=== PATIENT | female | born 1960 | race Caucasian/White ===

== ENCOUNTER → 2018-01-10 10:12 | Outpatient (CLI) | payer BC, SELFPAY ==
[2018-01-10 12:51] LABS: T4 Total, Thyroxin 7.6 ug/dL (4.8-13.9); Thyroid Stim Hormone (TSH) 0.48 uIU/mL (0.358-3.74)
== END ==
PROVIDERS: Family Provider Family Medicine; PCP Family Medicine; Visit Provider Family Medicine
DX: E07.9 Disorder of thyroid, unspecified (principal)
CPT/HCPCS: 36415; 84436; 84443

== ENCOUNTER → 2018-01-10 14:34 | Outpatient (CLI) | payer BC, SELFPAY ==
[2018-01-17 15:10] LABS: HPV Reflexed? NOT INDICATED
== END ==
PROVIDERS: Family Provider Family Medicine; PCP Family Medicine; Visit Provider Family Medicine
DX: Z12.4 Encounter for screening for malignant neoplasm of cervix (principal)
CPT/HCPCS: 88175; G0145

== ENCOUNTER → 2018-01-16 10:18 | Outpatient (CLI) | payer SELFPAY ==
--- NOTE | 2018-01-16 10:19 | US_ITS ---
STUDY: THYROID ULTRASOUND REASON FOR EXAM: Female, 57 years old. Thyroid disorder. TECHNIQUE: Ultrasound evaluation of the thyroid was performed with real-time and static caraballo-scale imaging. COMPARISON: None. FINDINGS: RIGHT LOBE: The right lobe of the thyroid gland measures greatest dimension 6.5 cm. The thyroid gland is enlarged, diffusely multinodular and heterogeneous, the largest nodular region measuring approximately 3.0 x 2.0 x 1.9 cm, ill-defined borders throughout. LEFT LOBE: The left lobe of the thyroid gland measures 8.2 x 3.8 x 3.5 cm cm. The thyroid gland is enlarged, diffusely multinodular without well-defined nodular borders similar to that seen on the right. Background vascularity of the right and left gland normal. No hyperemia. ISTHMUS: The isthmus measures up to 2 cm in thickness, nodular and heterogeneous. US/Thyroid IMPRESSION: Diffuse bilateral nodular enlargement of the thyroid gland most consistent with multinodular goiter. Electronically Signed: Kishore Wilson, at 14:28 EDT Tel , Service support ,
== END ==
PROVIDERS: Family Provider Family Medicine; PCP Family Medicine; Visit Provider Family Medicine
DX: E07.9 Disorder of thyroid, unspecified (principal)
CPT/HCPCS: 76536

== ENCOUNTER → 2018-02-03 07:00 | Outpatient (CLI) | payer BC, SELFPAY ==
--- NOTE | 2018-02-03 06:57 | BI_ITS ---
MAMMOGRAPHY - BILATERAL SCREENING REASON FOR EXAM: Female, 57 years old. Routine annual screening examination. PERTINENT HISTORY: Non-contributory. Remote left stereotactic breast biopsy. TECHNIQUE: Digital bilateral breast darrell (3D mammographic acquisition) in the CC and MLO projections. 2-D mediolateral oblique (MLO) and craniocaudad (CC) views of both breasts were obtained. CAD: Full Field Digital Mammography with Computer Added Detection was performed. COMPARISON: Comparison is made with prior study dated April 30, 2016 and April 29, 2015. FINDINGS: Breast Composition: The breasts are heterogeneously dense, which may obscure small masses. There are no dominant masses or suspicious calcifications. Once again, a tissue clip marker is seen in the upper deep lateral aspect of the left breast. No other significant abnormalities are identified. There has been no significant change since the prior study. BI/SCREENING MAMM (CAD), BILAT IMPRESSION: Stable bilateral screening mammogram. Yearly follow-up mammogram recommended. (A) ASSESSMENT CATEGORY: BIRADS Category 2: Benign. A letter regarding these results will be sent to the patient by the facility within 30 days. Approximately 10% of breast cancers are not detected by mammography. A normal mammogram should not delay biopsy of a clinically suspicious abnormality. [id number] Electronically Signed: London Husain MD at 8:36 EDT Tel [phone], Service support ,
== END ==
PROVIDERS: Family Provider Family Medicine; PCP Family Medicine; Visit Provider Family Medicine
DX: Z12.31 Encounter for screening mammogram for malignant neoplasm of breast (principal)
CPT/HCPCS: 77063; 77067

== ENCOUNTER 2020-10-10 08:16 | Outpatient (RCR) | payer BC, SELFPAY ==
[2020-10-10] MEDS: COVID-19 VACC, MRNA(PFIZER)/PF 30 MCG/0.3 ML SYRINGE IM (16:12)
[2020-10-31] MEDS: COVID-19 VACC, MRNA(PFIZER)/PF 30 MCG/0.3 ML SYRINGE IM (15:49)
== END 2020-10-10 23:59 ==
LOC: IMMUN 08:16
PROVIDERS: PCP Family Medicine; Visit Provider Family Medicine
DX: Z23 Encounter for immunization (principal)
CPT/HCPCS: 0001A; 0002A; 91300

== ENCOUNTER 2022-03-30 14:47 | Outpatient (CLI) | payer BC, SELFPAY ==
[2022-04-07 16:36] LABS: HPV APTIMA, High Risk Negative (Negative); HPV Reflexed? YES, CHARGE PATIENT
== END 2022-03-30 23:59 | disposition home or self-care (01) ==
PROVIDERS: PCP Family Medicine; Visit Provider Family Medicine
DX: Z12.4 Encounter for screening for malignant neoplasm of cervix (principal)
CPT/HCPCS: 87624; 88175; G0145

== ENCOUNTER → 2022-04-20 | Outpatient (CLI) | payer BC, SELFPAY ==
--- NOTE | 2022-04-20 16:01 | BI_ITS ---
MAMMOGRAPHY - BILATERAL SCREENING 3-D TOMOSYNTHESIS REASON FOR EXAM: Female, 62 years old. SCREENING PERTINENT HISTORY: No significant family history. TECHNIQUE: 2-D mammograms and 3-D Tomosynthesis of the breast (s) were performed. CAD was performed. COMPARISON: 02/03/2018 FINDINGS: The breast composition is Extermely dense tissue. Scattered benign calcifications are seen. 1 cm oval obscured equal density mass in the upper inner quadrant of the right breast at mid depth and focal compression views recommended for further evaluation. No suspicious calcifications. No architectural distortion is identified. There is no skin thickening or retraction. BI/SCRN MAMM (CAD)W/SHELBIE BILAT IMPRESSION: 1 cm oval obscured equal density mass in the upper inner quadrant of the right breast at mid depth and focal compression views are recommend for further evaluation. ASSESSMENT CATEGORY: BIRADS Category 0: Incomplete. Need additional imaging evaluation as above. A letter regarding these results will be sent to the patient by the facility within 30 days. FOLLOW UP RECOMMENDATION: Additional imaging recommended as above. (E) Approximately 10% of breast cancers are not detected by mammography. A normal mammogram should not delay biopsy of a clinically suspicious abnormality. Electronically Signed: Kishore Jack MD at 17:05 EDT ,
--- NOTE | 2022-04-20 16:02 | BD_ITS ---
STUDY: DUAL ENERGY X-RAY ABSORPTIOMETRY / DXA REASON FOR EXAM: Female, 62 years old. V76.12ScreeningBONE DENSITY REASON FOR EXAM TECHNIQUE: Bone Mineral Density (BMD) measurements of lumbar spine and bilateral hips were obtained. COMPARISON: Comparison is made with prior study dated 04/06/2012. FINDINGS: Lumbar Spine (L1-L4): g/cm2 (0.947) / T-score (-0.6) / Z-score (1.0) Findings are suggestive of normal bone density with a low fracture risk. Left Femur Total: g/cm2 (0.847) / T-score (-0.8) / Z-score (0.4) Left Femoral Neck: g/cm2 (0.782) / T-score (-0.6) / Z-score (0.9) Right Femur Total: g/cm2 (0.874) / T-score (-0.6) / Z-score (0.6) Right Femoral Neck: g/cm2 (0.812) / T-score (-0.3) / Z-score (1.1) The T-Scores on the most recent prior examination were: Lumbar Spine (L1-L4): There has been worsening of bone density since the previous examination. Left Femur Total: which represents a worsening of 14.3%. Right Femur Total: which represents a worsening of 11%. BD/Dexa Bone Density Study IMPRESSION: The patient is considered normal as outlined below according to World [place] [employer] Organization (WHO) criteria with a low fracture risk. There has been worsening of bone density since the previous examination. Reference Information: The T-score is the number of standard deviations above or below the standard which is normal for young adults at their peak bone mineral density. The World Health Organization (WHO) interprets the T-scores as follows: Above -1 Normal bone density Between -1 and -2.5 Osteopenia Equal to / or below -2.5 Osteoporosis As a practical clinical guideline, osteopenia may be graded as follows: Mild -1 through -1.5 Moderate -1.6 through -2.0 Severe -2.1 through -2.4 The Z-score is the number of standard deviations above or below age-matched controls. A Z-score of less than -1.5 would be considered abnormal. References: 1. NIH Osteoporosis and Related Bone Diseases www osteo.org 2. International Society for Clinical Densitometry www iscd.org 3. National Osteoporosis Foundation www nof.org Electronically Signed: London Husain MD at 12:56 EDT ,
== END | disposition home or self-care (01) ==
PROVIDERS: PCP Family Medicine; Visit Provider Family Medicine
DX: N95.9 Unspecified menopausal and perimenopausal disorder (principal); Z12.31 Encounter for screening mammogram for malignant neoplasm of breast; N63.12 Unspecified lump in the right breast, upper inner quadrant
CPT/HCPCS: 77063; 77067; 77080

== ENCOUNTER → 2022-04-23 | Outpatient (CLI) | payer BC, SELFPAY ==
--- NOTE | 2022-04-23 12:53 | BI_ITS ---
MAMMOGRAPHY - UNILATERAL DIAGNOSTIC: RIGHT BREAST REASON FOR EXAM: Female, 62 years old. DENSITY PERTINENT HISTORY: Non-contributory. TECHNIQUE: Digital examination. Mediolateral oblique (MLO) and craniocaudad (CC) views of the breast were obtained. CAD: CAD was not performed on this study. COMPARISON: 04/20/2022 FINDINGS: Breast Composition: The breasts are heterogeneously dense, which may obscure small masses. Focal compression views confirm a 1 cm oval obscured equal density mass in the upper inner quadrant of the right breast at mid depth and ultrasound is recommended for further evaluation. No other significant abnormalities are identified. BI/DIAG MAMM W/CAD, UNILAT IMPRESSION: Further ultrasonographic evaluation recommended, as described above. ASSESSMENT CATEGORY: BIRADS Category 0: Incomplete. Need additional imaging evaluation. A letter regarding these results will be sent to the patient by the facility within 30 days. FOLLOW-UP RECOMMENDATION: Ultrasound recommended. (I) Approximately 10% of breast cancers are not detected by mammography. A normal mammogram should not delay biopsy of a clinically suspicious abnormality. Electronically Signed: Kishore Jack MD at 13:38 EDT ,
--- NOTE | 2022-04-23 13:41 | US_ITS ---
STUDY: ULTRASOUND BREAST - RIGHT REASON FOR EXAM: Female, 62 years old. Abnormal screening mammogram. TECHNIQUE: Axial and longitudinal images of the RIGHT breast were performed with a high resolution ultrasound transducer. # OF IMAGES: 39 COMPARISON: Diagnostic mammogram earlier today, screening mammogram 04/20/2022 FINDINGS: RIGHT Breast: Heterogeneous background echotexture. At 1 o''clock, 4 cm nipple, ultrasound confirms a 6 mm oval parallel circumscribed hypoechoic mass with no posterior features for which ultrasound-guided biopsy is recommended.: US/Breast Limited Unilateral IMPRESSION: Focal compression views and ultrasound confirming a 6 mm oval hypoechoic mass and ultrasound-guided vacuum-assisted core biopsy is recommended. ASSESSMENT CATEGORY: BIRADS Category 4: Suspicious - Biopsy Should Be Considered. A letter regarding these results will be sent to the patient by the facility within 30 days. Electronically Signed: Kishore Jack MD at 14:32 EDT ,
== END | disposition home or self-care (01) ==
PROVIDERS: PCP Family Medicine; Referring Provider Family Medicine; Visit Provider Family Medicine
DX: N63.12 Unspecified lump in the right breast, upper inner quadrant (principal)
CPT/HCPCS: 76642; 77065

== ENCOUNTER → 2022-04-27 | Outpatient (CLI) | payer BC, SELFPAY ==
--- NOTE | 2022-04-27 09:03 | BRBX_PTH ---
PATIENT: DIOMEDES CALVO LOC: [facility] U#:[id number] AGE/SX: 62/F ROOM: RE04/27/[address]: Dr. Corine Adhikari MD : 1960 BED: DIS: 04/27/2022 SPEC #: [id number] RECD: 04/27/22 12:46 STATUS: TOM REQ #: [id number] CHIVO: 04/27/22 09:[address]: Corine Adhikari DEPT: SURGICAL PATHOLOGY RECD BY: Bre Briseno ENTERED: 04/27/22 13:39 SP TYPE: BREAST BX OTHR DR: Dr. Haley Wellington MD Tissues: Right breast, NOS Procedures: Surgery Specimen Level IV HEADER OPERATION: Right breast biopsy PRE-OP DIAGNOSIS: Right breast mass TISSUE SUBMITTED: Right breast mass 1 o?clock, 4 cm from nipple FIXATION TIME: 10.5 hours MICROSCOPIC DIAGNOSIS Right breast mass, core biopsy: Hyalinized fibroadenoma. AM:danni 04/28/2022 MICROSCOPIC DESCRIPTION Slides are reviewed. GROSS DESCRIPTION Received in fixative is one container labeled with the patient's name and designated right breast tissue. The specimen consists of multiple elongated fragments of brooke-yellow fibroadipose tissue that in aggregate measure 2 x 1.5 x 0.1 cm. The entire specimen is submitted in one cassette. / SJ:danni 04/27/2022 TC:5 CPT: 43126
== END | disposition home or self-care (01) ==
LOC: LABSPEC 12:53
PROVIDERS: PCP Family Medicine; Visit Provider Surgery
DX: D24.1 Benign neoplasm of right breast (principal)
CPT/HCPCS: 88305

== ENCOUNTER 2022-05-06 10:21 | Day surgery (SDC) | payer BC, SELFPAY ==
--- NOTE | 2022-05-04 14:24 | RAD_ITS ---
STUDY: X-RAY CHEST REASON FOR EXAM: Female, 62 years old. Preop, foot surgery. TECHNIQUE: PA and lateral views of the chest. COMPARISON: None. FINDINGS: The lungs are mildly hyperexpanded. There is no acute infiltrate or mass. There is no demonstrated pleural abnormality. Normal size heart. Normal mediastinum and pola. Normal visualized pulmonary arteries. Normal visualized aortic arch and descending thoracic aorta. Normal visualized thoracic spine. There is degenerative osteoarthritis of the bilateral shoulders. There is no demonstrated abnormality of the visualized soft tissue structures of the upper abdomen. RAD/Chest PA and Lateral IMPRESSION: Question mild COPD without acute cardiopulmonary disease. Electronically Signed: Jered Weaver DO at 18:19 EDT ,
[2022-05-04 15:52] LABS: Absolute Lymphocyte Count 1.26 X10^3/uL (0.83-4.51); Absolute Neutrophil Count 2.7 X10^3/uL (2.0-7.7); Basophil# 0.04 X10^3/uL; Basophil% 0.9 % (0-1); Eosinophil# 0.05 X10^3/uL; Eosinophils% 1.1 % (0-5); Hematocrit 40.2 % (37-47); Hemoglobin 13.4 g/dL (12.0-15.0); Lymphocyte # 1.26 X10^3/ul (0.83-4.51); Lymphocyte % 27.7 % (19-41); Mean Corp Hgb Conc 33.3 g/dL (32-36); Mean Corpuscular Volume 89.9 fL (81-99); Monocyte# 0.48 X10^3/uL; Monocyte% 10.5 % (0-10); NRBC Flagged by Analyzer 0 % (0-5); Neutrophil # 2.71 X10^3/uL (2.7-7.7); Neutrophil % 59.6 % (47-70); Platelet Count 231 K/mm3 (150-450); RBC Distribution Width CV 12.7 % (11.6-14.6); Red Blood Count 4.47 M/mm3 (4.2-5.4); White Blood Count 4.6 K/mm3 (4.4-11.0)
[2022-05-04 16:20] LABS: Anion Gap 5 (5-15); BUN 14 mg/dL (7-18); BUN/Creat Ratio 19.6 RATIO (10-20); Calcium,Total 9.4 mg/dL (8.5-10.1); Chloride 107 mmol/L (98-107); Creatinine, Serum 0.72 mg/dL (0.55-1.02); EST Glomerular Filtration Rate 87 mL/min (>60); Est Glom Filt Rate - Afr Amer 106 mL/min (>60); Glucose 96 mg/dL (74-106); Potassium 4.1 mmol/L (3.5-5.1); Sodium Level 141 mmol/L (136-145)
[2022-05-06] VITALS (8 sets, daily range): BP systolic 129–142; BP diastolic 71–98; PULSE 53–96; RESP 16; TEMP 35.9–36.8; O2SAT 16–100; BMI 23.4
[2022-05-06] MEDS: Lactated Ringers 1,000 ML 15 ML IV (10:49)
[2022-05-06] MEDS: Cefazolin 2 GM in 0.9% Normal Saline 100 ML IV (12:53)
--- NOTE | 2022-05-06 15:04 | DCINST_ITS ---
Discharge Instructions Follow Up Care Test Results: Test results from this visit will be discussed in further detail at your follow- up appointment, if applicable. Discharge Plan Admission Primary Reason for Your Visit: Right Achilles tendon repair Attending Provider: Shakir Quinonez Primary Care Provider: Haley Wellington Instructions Additional Instructions / Restrictions: Follow preprinted instructions from your surgeons office Discharge Orders/Prescriptions Prescriptions: No Action NK Referrals / Follow Up: Haley Wellington MD [Primary Care Provider] - Shakir Quinonez DO [Med Staff - Active Staff] - Within 2 Weeks Disposition Disposition (needs filled in before D/C Order can be placed): Home, Self Care
--- NOTE | 2022-05-06 15:04 | PCM.OPRPT ---
Report of Operation Description of Surgical Findings:: Preoperative diagnosis: Right Achilles tendon rupture Postoperative diagnosis: Right Achilles tendon rupture Procedure: Right Achilles tendon repair Surgeon: Shakir Quinonez DO Configuration Specialist: Shy Mansfield PA-C Anesthesia: General with peroneal block Environmental Science Technician: Nic Hooker CRNA Complications: None apparent Drains: None Estimated blood loss: 50 cc Urinary output: None recorded IV fluids: 1 L crystalloid Specimens: None Surgical implants: Arthrex suture tape x3, Arthrex 4.75 mm swivel lock anchors x2 Surgical indications: This is a 62-year-old female who is otherwise healthy who sustained an ankle injury approximately 4 weeks ago playing [employer] ball. She noted immediate pain in the Achilles tendon and weakness with plantarflexion. She felt like the pain was improving slightly until is exacerbated approximately 1 to 2 weeks ago. This prompted a visit to our office for evaluation. Urgent MRI was obtained due to a positive Foster maneuver and concerning findings for a Achilles tendon rupture. MRI confirmed the diagnosis. 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 I saw the patient and recommended operative intervention due to the chronicity of the injury and lack of proper immobilization for nonoperative management. The risk, benefits, alternatives to the procedure reviewed with the patient at length. Informed consent was obtained. Risks included but were not limited to bleeding, infection, loss of life or limb, nonhealing wound or tendon, persistent pain, neurovascular injury, DVT or PE. Patient expressed understanding these risks and would wish to proceed with surgery. Description of procedure: Patient was seen in preoperative holding area. She was identified by name, medical record number, date of . The operative extremity was marked with a surgical marker. We confirmed informed consent with the patient and all questions were answered to her satisfaction. In the preoperative holding area, a popliteal block was administered by the anesthesia staff. At time of her procedure, patient was brought to the operative suite. General anesthesia was administered and endotracheal tube placed and secured on the patient's gurney. Patient was then positioned prone on the standard operating table with gel chest pads, axillary rolls bilaterally. All bony prominences were well-padded. A well-padded pneumatic tourniquet was applied to the right upper thigh prior to flipping. We then prepped and draped the right lower extremity in normal, sterile orthopedic fashion. We performed a timeout with all parties in attendance in agreement with the side, site, operation be performed. No concerns were voiced and we elected to proceed with surgery. 2 g Ancef was administered prior to the incision and prior to tourniquet inflation by anesthesia staff. I first exsanguinated the right lower extremity with an Esmarch bandage. Tourniquet was inflated to 250 mmHg remained up for approximately 45 minutes. Esmarch was removed. Due to the lack of obvious tendon injury by palpation, elected to proceed with standard longitudinal approach to the Achilles tendon. A longitudinal incision just medial to the midline of the tendon was made sharply with a 15 blade scalpel developing full-thickness layers down to the peritenon. Peritenon was intact. Peritenon was split sharply in line with the incision. Tendon was encountered. 90% tearing was noted with a few remaining fibers in continuity. Distal tendon stump was palpated through the wound and felt to be approximately 2-3 cm consistent with the MRI findings. I transected the remaining fibers to elevate the proximal stump of tendon. Tendonotic fibers were debrided. I secured the tendon with an Allis clamp and felt the mobility of the tendon was adequate for primary repair. I then utilized the PARS jig from Arthrex to percutaneously passed the fiber tape suture through the proximal segment of the tendon and were retrieved through the wound. Locking sutures were passed and the tendon was secured excellently with these sutures. I was able to apply longitudinal traction to the tendon of approximately 50 pounds without loss of fixation with the suture tape. Due to the short remaining stump, likely due to preoperative tendinosis and Juan Jose's deformity, I elected to repair the tendon utilizing suture anchors in the calcaneal tuberosity to tension the tendon without relying on a short tendon stump. I made 2 stab incisions on the medial and lateral aspects of the calcaneal tuberosity. I drilled and tapped per tin stacker recommendations angling approximately 45 degrees towards midline in both instances. Excellent purchase was felt with the tap in both drill holes. And then utilized the Desura suture lasso to retrieve sutures from the incision through the distal tendon stump and out both the medial and lateral stab incisions at the calcaneus. I then had my real estate administrative assistant tension the suture and hold the foot in maximal plantar flexion while I placed sequentially the medial and subsequently the lateral suture anchor with excellent bony purchase. Tension of the sutures appeared appropriate for repair. Sutures were cut flush with the countersunk suture anchors. Foster test was normal following repair. I then deflated the tourniquet. Hemostasis was excellent. I copiously irrigated the wound with normal saline solution. I closed the stab incisions with [id number] 3-0 nylon suture. Peritenon was closed watertight with a running, locking 0 Vicryl suture. Dermis was reapproximated with interrupted buried 3-0 Vicryl suture. Skin incision was finally closed with interrupted simple 3-0 nylon suture. Xeroform was applied to the wounds. A well-padded posterior fiberglass splint was then placed in maximal plantarflexion. Patient was then repositioned in the supine position, extubated and safely awoken from anesthesia in the operative suite. She was transferred to PACU in stable condition. Need for skilled real estate administrative assistant: Shy Mansfield PA-C was critical to the outcome of the case. During the course of the procedure the physician real estate administrative assistant played a vital role. Her intimate knowledge of my steps in the procedure aided in safe and expedient completion of the procedure. The PA played a vital role in positioning particularly in obtaining the appropriate positioning. The PA was also vital in the retraction of soft tissues during the exposure and protecting vital structures. The PA was also vital and obtaining tendon reduction and assisting with hardware placement. She also played a vital role in closure and splint application with my direct supervision. Post Operative Plan: Weightbearing: Nonweightbearing operative extremity Antibiotics: 2 g Ancef x 1 dose preoperatively DVT Prophylaxis: 81 mg aspirin twice daily to start tomorrow until first follow-up appointment in 2 weeks Dressing: Maintain splint, keep it clean dry and intact until follow-up X-Rays: None needed Pain Medication: Oxycodone prescription provided in the office Follow-up: 2 weeks post-operatively with me in the office as previously scheduled
== END 2022-05-06 16:53 | disposition home or self-care (01) ==
LOC: SDC 10:27 → AC 10:29
PROVIDERS: PCP Family Medicine; Referring Provider Student in an Organized Health Care Education/Training Program; Visit Provider Student in an Organized Health Care Education/Training Program
PROC: (CPT 27650; principal; 2022-05-06 11:50)
DX: S86.011A Strain of right Achilles tendon, initial encounter (principal); X58.XXXA Exposure to other specified factors, initial encounter; Y93.89 Activity, other specified; R03.0 Elevated blood-pressure reading, without diagnosis of hypertension
CPT/HCPCS: 27650; 64450; 36415; 71046; 80048; 85025; 93005; J7120; J2405

== ENCOUNTER → 2022-06-21 | Outpatient (CLI) | payer BC, SELFPAY ==
--- NOTE | 2022-06-21 12:55 | US_ITS ---
EXAM: US SOFT TISSUES HEAD AND NECK, THYROID CLINICAL INDICATION: thyroid Disorder TECHNIQUE: Chan scale and color doppler imaging was performed of the thyroid gland. This report was created using [employer] report generation technology. COMPARISON: US Thyroid dated 01/16/2018 FINDINGS: LEFT THYROID LOBE: Left lobe measures 10.0 x 4.3 x 3.8 cm and also demonstrates diffusely abnormal multinodular echo pattern. RIGHT THYROID LOBE: Right thyroid lobe measures 8.8 x 3.4 x 3.1 cm with prominent diffuse multinodular echotexture. US/Thyroid IMPRESSION: Stable multinodular goiter. Electronically Signed: Bobo Ford MD at 15:55 EST ,
== END | disposition home or self-care (01) ==
LOC: US 12:55
PROVIDERS: PCP Family Medicine; Referring Provider Family Medicine; Visit Provider Family Medicine
DX: E04.2 Nontoxic multinodular goiter (principal)
CPT/HCPCS: 76536

== ENCOUNTER → 2024-03-28 | Outpatient (CLI) | payer MEDICARE, SELFPAY ==
--- NOTE | 2024-03-28 07:43 | US_ITS ---
STUDY: THYROID ULTRASOUND REASON FOR EXAM: Female, 63 years old. thyroid nodules TECHNIQUE: Ultrasound evaluation of the thyroid was performed with real-time and static caraballo-scale imaging. COMPARISON: 06/21/2022 FINDINGS: RIGHT LOBE: The right lobe of the thyroid gland measures 6.2 x 3.5 x 2.7 cm. There is a heterogeneous echotexture. There are no demonstrated solid, cystic or complex lesions. LEFT LOBE: The left lobe of the thyroid gland measures 8.6 x 4.6 x 3.8 cm. There is a heterogeneous echotexture. There are no demonstrated solid, cystic or complex lesions. ISTHMUS: The isthmus measures 25 mm thick . The regional lymph nodes are normal. US/Thyroid IMPRESSION: Thyroiditis with no dominant nodule. Electronically Signed: Kishore Jack MD at 10:07 EDT ,
--- NOTE | 2024-03-28 07:43 | BI_ITS ---
MAMMOGRAPHY - BILATERAL SCREENING REASON FOR EXAM: Female, 63 years old. Routine annual screening examination. PERTINENT HISTORY: Non-contributory. History of bilateral breast biopsies. TECHNIQUE: Digital bilateral breast shelbie (3D mammographic acquisition) in the CC and MLO projections. 2-D mediolateral oblique (MLO) and craniocaudad (CC) views of both breasts were obtained. CAD: Full Field Digital Mammography with Computer Added Detection was performed. COMPARISON: Comparison is made with prior study dated April 20, 2022 and April 23, 2022. FINDINGS: Breast Composition: The breasts are extremely dense, which lowers the sensitivity of mammography. There are no dominant masses or suspicious calcifications. A tissue clip marker is once again seen in the upper and the lateral aspect of the left breast. A tissue clip marker is also seen in the upper central portion of the right breast. The previously seen 1 cm nodule as resolved. No other significant abnormalities are identified. There has been no significant change since the prior study. BI/SCRN MAMM (CAD)W/SHELBIE BILAT IMPRESSION: Stable bilateral screening mammogram. Yearly follow-up mammogram recommended. (A) ASSESSMENT CATEGORY: BIRADS Category 2: Benign. A letter regarding these results will be sent to the patient by the facility within 30 days. Approximately 10% of breast cancers are not detected by mammography. A normal mammogram should not delay biopsy of a clinically suspicious abnormality. [id number] Electronically Signed: London Husain MD at 8:41 EDT ,
== END | disposition home or self-care (01) ==
PROVIDERS: PCP Family Medicine; Referring Provider Family Medicine; Visit Provider Family Medicine
DX: Z12.31 Encounter for screening mammogram for malignant neoplasm of breast (principal); E07.9 Disorder of thyroid, unspecified
CPT/HCPCS: 76536; 77063; 77067

== ENCOUNTER 2025-03-01 12:18 | Emergency (ER) | payer MEDICARE, SELFPAY ==
[2025-03-01 12:19] VITALS: BP 155/88; PULSE 86; RESP 18; TEMP 36.6; O2SAT 100; BMI 23.6
--- NOTE | 2025-03-01 12:46 | RAD_ITS ---
PROCEDURE: FOREARM 2 VIEWS 03/01/2025 REASON FOR EXAM: PAIN TECHNIQUE: FOREARM 2 VIEWS COMPARISON: none RAD/Forearm 2 Views IMPRESSION: No acute fracture or dislocations. Scattered minimal degenerative changes. No acute soft tissue abnormalities. No radiographic foreign body. Reading Location: [id number]
--- NOTE | 2025-03-01 12:46 | RAD_ITS ---
PROCEDURE: HUMERUS MIN 2 VIEWS 03/01/2025 REASON FOR EXAM: PAIN TECHNIQUE: HUMERUS MIN 2 VIEWS COMPARISON: None RAD/Humerus min 2 Views IMPRESSION: No acute fracture or dislocations. Scattered minimal degenerative changes. No acute soft tissue abnormalities. No radiographic foreign body. Reading Location: [id number]
--- NOTE | 2025-03-01 12:46 | RAD_ITS ---
PROCEDURE: ELBOW MIN 3 VIEWS 03/01/2025 REASON FOR EXAM: PAIN TECHNIQUE: ELBOW MIN 3 VIEWS COMPARISON: None RAD/Elbow min 3 Views IMPRESSION: No acute fracture or dislocations. Scattered minimal degenerative changes. Mi nimal joint effusion. No acute soft tissue abnormalities. No radiographic foreign body. Reading Location: [id number]
--- NOTE | 2025-03-01 13:19 | EDS_ITS ---
HPI History of Present Illness Chief Complaint: Upper Extremity Injury Narrative Narrative: Chief complaint and HPI: Left elbow pain. 64-year-old female presents for evaluation of left elbow pain. Patient states she was walking when she tripped and fell onto her left upper extremity. States she has pain in the left elbow with supination and pronation. No pain with flexion or extension. Denies injury to the shoulder, wrist, hand. No numbness or tingling. Denies injury elsewhere. Has not taken anything for the pain. Review of systems: See HPI Medications: As listed on the chart Allergies: As listed on the chart PFSH: Per chart Vital signs: As listed on the chart. Reviewed. Physical exam: Gen: A&O x3, NAD Head: Normocephalic, atraumatic Eyes: No sclera icterus, conjunctiva clear ENT: Moist mucous membranes Neck: Full range of motion CV: Regular rate Resp: Nonlabored respiration Musc: Full ROM active and passive range of motion of the left upper extremity - does endorse pain with supination and pronation in the left elbow, no erythema/warmth/ecchymosis/crepitus of the left upper extremity including the elbow, radial pulse +2, good capillary refill, sensation intact, compartments soft, mild tenderness to palpation of the left shoulder but otherwise no tendern ess of the left upper extremity Skin: Warm, dry Neuro: Alert, oriented, grossly intact, sensation intact Psych: Cooperative, appropriate mood and affect [facility] Medical History (Updated 03/01/25 @ 14:[address] Richar Carrillo, DO) Wears glasses Cancer Migraine headache Syncope Non-smoker History of pain when walking History of edema History of rheumatic fever Home Medications ?Medication ?Instructions ?Recorded ?Last Taken ?Type NK 04/27/22 Unknown History Allergy/AdvReac Type Severity Reaction Status Date / Time No Known Allergies Allergy Verified 03/01/25 12:19 Family History (Updated 04/27/22 @ 08:30 by Summer Villanueva) Mother Leukemia High cholesterol Father Diabetes High cholesterol Thyroid disorder Surgical History Hx of colonoscopy S/P S/P tonsillectomy Social History (Updated 04/27/22 @ 08:31 by Summer Villanueva) Smoking Status: Never smoker alcohol intake: never substance use type: does not use EXAM Physical Exam Const Vital Signs: 03/01/25 12:19 03/01/25 13:10 Temperature 98 F Temperature Source Temporal Pulse Rate 86 Respiratory Rate 18 Respiratory Effort Normal Respiratory Depth Normal Respiratory Pattern Normal Blood Pressure 155/88 H Blood Pressure Mean 110 Pulse Ox 100 Oxygen Delivery Method Room Air Room Air MDM MDM MDM Narrative Medical decision making narrative: 64-year-old female presents for evaluation of left elbow pain. Patient states she was walking when she tripped and fell onto her left upper extremity. States she has pain in the left elbow with supination and pronation. No pain with flexion or extension. Differential diagnosis includes but is not limited to myofascial strain, contusion, fracture. Not consistent with dislocation. Patient had workup started in triage including x-rays of the forearm, elbow, humerus. I agree with the workup that was ordered. X-ray of the forearm, elbow, humerus was personally viewed and interpreted by me, ED physician. No fracture or dislocation. Radiology in agreement except for mild swelling. Patient's symptoms are likely secondary to contusion. Tylenol and ibuprofen as needed for pain. Rest. Follow-up with PCP. Return precautions explained. They confirmed understanding. Patient stable to discharge home. Impression: 1. Left elbow contusion 2. Mechanical fall Discharge Plan Triage Chief Complaint: Upper Extremity Injury Other Complaint: Fall ED Provider: Richar Carrillo Dx/Rx/DC Orders Clinical Impression: Contusion of elbow, left Instructions: Bruises (Contusions) Prescriptions: No Action NK Primary Care Provider: Marty White Referrals: Marty White MD [Primary Care Provider] - 3-5 Days Activity Restrictions/Additional Instructions: Follow-up with primary care physician. Tylenol and ibuprofen as needed for pain. Print Language: Estonian Disposition Disposition: Home, Self Care
[2025-03-01 14:41] VITALS: BP 155/88; PULSE 86; RESP 18; TEMP 36.6; O2SAT 100
== END 2025-03-01 14:42 | disposition home or self-care (01) ==
PROVIDERS: Emergency Provider Surgery; PCP Family Medicine; Visit Provider Surgery
DX: S50.02XA Contusion of left elbow, initial encounter (principal); W01.0XXA Fall on same level from slipping, tripping and stumbling without subsequent striking against object, initial encounter
CPT/HCPCS: 73060; 73080; 73090; 99283

== ENCOUNTER → 2025-03-18 | Outpatient (CLI) | payer MEDICARE, SELFPAY ==
[2025-03-18 15:50] LABS: Hematocrit 40.1 % (37-47); Hemoglobin 13.3 g/dL (12.0-15.0); Mean Corp Hgb Conc 33.2 g/dL (32-36); Mean Corpuscular Volume 88.7 fL (81-99); Mean Platelet Vol. 10.0 fl (6.2-12.0); Platelet Count 242 K/mm3 (150-450); RBC Distribution Width CV 12.5 % (11.6-14.6); RBC Distribution Width SD 40.7 fl (35.1-43.9); Red Blood Count 4.52 M/mm3 (4.2-5.4); White Blood Count 4.1 K/mm3 (4.4-11.0)
[2025-03-18 19:08] LABS: Anion Gap 13 (5-15); BUN 15 mg/dL (4-19); BUN/Creat Ratio 19.6 RATIO (10-20); Calcium,Total 9.7 mg/dL (7.6-11.0); Carbon Dioxide 23.9 mmol/L (21.0-32.0); Chloride 102 mmol/L (98-108); Cholesterol 162 mg/dL (<=200); Glucose 95 mg/dL (70-99); Low Density Lipoprotein Calc. 91 mg/dL; Potassium 4.2 mmol/L (3.3-5.1); Triglycerides 95 mg/dL; Very Low Density Lipoprotein 19 mg/dL (5-40); cholesterol:hdl ratio screen 3.10
[2025-03-19 15:15] LABS: Free T3 3.8 pg/mL (2.18-3.98)
== END | disposition home or self-care (01) ==
LOC: MFPLAB 11:54
PROVIDERS: PCP Family Medicine; Visit Provider Family Medicine
DX: E04.9 Nontoxic goiter, unspecified (principal); R42 Dizziness and giddiness
CPT/HCPCS: 36415; 80048; 80061; 84439; 84443; 84481; 85027

== ENCOUNTER → 2025-03-19 | Outpatient (CLI) | payer MEDICARE, SELFPAY ==
[2025-03-21 04:07] LABS: T3UP 28 % (24-39)
== END | disposition home or self-care (01) ==
LOC: MFPLAB 11:37
PROVIDERS: PCP Family Medicine; Referring Provider Family Medicine; Visit Provider Family Medicine
DX: E07.9 Disorder of thyroid, unspecified (principal)
CPT/HCPCS: 36415; 84479; 86376

== ENCOUNTER → 2025-04-24 | Outpatient (CLI) | payer MEDICARE, SELFPAY ==
--- OUTSIDE RECORDS SUMMARY | 2025-04-24 07:23 | XMS RPT_ITS | CCD ---
Author Organization [facility] CliniSynv Care Team Providers Care Ground Operations Supervisor Name Role Phone Dr. Haley Wellington Primary Care Provider Dr. Haley Wellington Referring Provider [phone] Dr. Corine Adhikari Attending Provider Dr. Haley Wellington Primary Care Provider Dr. Haley Wellington Referring Provider [phone] Dr. Corine Adhikari Attending Provider Dr. Kalee Rice Attending Provider Dr. Moncho Arrieta Referring Provider [phone] Dr. Richar Carrillo DO Emergency Provider Dr. Marty White MD Primary Care Provider Dr. Richar Carrillo DO Attending Provider Dr. Marty White MD Attending Provider Dr. Marty White MD Referring Provider Richar Carrillo Attending Unavailabl e Marty White Primary Care Unavailable Marty White Primary Care Unavailable OlindaorrowDiaz Attending Unavailable OlindaorrDiaz jung Referring Unavailable Marty White Referring Unavailable Marty White Primary Care Unavailable Marty White Attending Unavailable Marty White Referring Unavailable Marty White Primary Care Unavailable Marty White Attending Unavailable Marty White Attending Unavailable Marty White Primary Care Unavailable Problems Problem Classification Problem Date Documented Da te Episodic/Chronic Nonmalignant breast conditions (9 sources) Breast lump; Translations: [Unspecified lump in the right breast, unspecified quadrant] Episodic Other injuries and conditions due to external causes (1 source) Unspecified injury of left elbow, initial encounter; Translations: [Unspecified injury of left elbow, initial encounter] Onset: 03-09-2025 Episodic Other screening for suspected conditions (not mental disorders or infectious disease) (2 sources) Encounter for screening mammogram for malignant neoplasm of breast; Translations: [Encounter for other screening for malignant neoplasm of breast] Onset: 04-22-2025 Episodic Residual codes; unclassified (1 source) Asymptomatic menopausal state; Translations: [Asymptomatic menopausal state] Onset: 04-22-2025 Episodic Superficial injury; contusion (3 sources) Contusion of left elbow; Translations: [Contusion of left elbow, initial encounter] 03-01-2025 Episodic Thyroid disorders (2 sources) Nontoxic goiter, unspecified; Translations: [Nontoxic goiter, unspecified] Onset: 03-22-2025 Chronic Thyroid disorders (1 source) Disorder of thyroid, unspecified; Translations: [Disorder of thyroid, unspecified] Onset: 03-25-2025 Episodic Results Test Name Value Interpretation Reference Range Facility L801.2650on 03-21-2025 T3UP 28 Normal 24-39 [facility] Comment on above: Performed By: #### L 3300.6900, L801.2650 #### [facility] [address] [place], [address] Thyroid Peroxidase ABon 08-2 THYR PEROX AB < 9 Normal 0-34 [facility] Comment on above: Result Comment: Perf ormed at: - [facility] [address] [id number] Athletic Coordinator: Teo Harden PhD, Phone: [phone] Performed By: #### L 3300.6900, L801.2650 #### [facility] [address] [place], [address] Free T3on 03-19-2025 Free T3 [Mass/Vol] 3.8 pg/mL Normal 2.18-3.98 [facility] Comment on above: Order Comment: DANAE Dumont ADD T3F TO BLOOD DRAWN 03/18/25 PER Order Date: 03/18/25 Order Info: 67-1 - BMP Order Info: [id number] - LIPID Order Info: 3 - TSH Order Info: 7 - T4F Performed By: #### L 501.59391 #### [facility] [address] [place], [place], [address] Serum or plasma thyroperoxid ase antibody assay (units/volume)Ordered By: Marty White on 03-19-2025 TPO Ab Qn [IU]/mL 0-34 [facility] Comment on above: Performed at: [address] [id number] Director: Teo Harden PhD, Phone: [phone] T3 RUOrdered By: Marty White on 03-19-2025 T3RU 28 % 24-39 [facility] Anion gap in Serum or Plasma Ordered By: Marty White on 03-18-2025 Anion gap [Moles/Vol] 13 mmol/L 5-15 [facility] BUN/creatinine ratioOrdered By: Marty White on 03-18-2025 Urea nitrogen/Creatinine [Mass ratio] 19.6 mg/mg 10-20 [facility] Basic Metabolic Profile (BMP )on 03-18-2025 BUN/CRE 19.6 RATIO Normal - [facility] Comment on above: Order Comment: Order Date: 03/18/25 Order Info: 0667- - BMP Order Info: [id number] - LIPID Order Info: 3 - TSH Order Info: 302-7 - T4F Performed By: #### L 501.9520, L506.0400, L500.4100, L100.0500, L500.2500 #### [facility] [address] [place], [place], [address] Calcium [Mass/Vol] 9.7 mg/dL Normal 7.6-11.0 [facility] Comment on above: Order Comment: Order Date: 03/18/25 Order Info: 666-08 - BMP Order Info: - LIPID Order Info: 3 - TSH Order Info: 3024-7 - T4F Performed By: #### L 501.9520, L506.0400, L500.4100, L100.0500, L500.2500 #### [facility] [address] [place], [address] Chloride [Moles/Vol] 102 mmol/L Normal 98-108 [facility] Comment on above: Order Comment: Order Date: 03/18/25 Order Info: 666-08 - BMP Order Info: - LIPID Order Info: 3 - TSH Order Info: 3024-7 - T4F Performed By: #### L 501.9520, L506.0400, L500.4100, L100.0500, L500.2500 #### [facility] [address] [place], [address] CO2 [Moles/Vol] 23.9 mmol/L Normal 21.0-32.0 [facility] Comment on above: Order Comment: Order Date: 03/18/25 Order Info: 666-08 - BMP Order Info: - LIPID Order Info: 3 - TSH Order Info: 3024-7 - T4F Performed By: #### L 501.9520, L506.0400, L500.4100, L100.0500, L500.2500 #### [facility] [address] [place], [address] Creatinine [Mass/Vol] 0.74 mg/dL Normal 0.70-1.20 [facility] Comment on above: Order Comment: Order Date: 03/18/25 Order Info: 666-08 - BMP Order Info: 27390-5 - LIPID Order Info: 3013 - TSH Order Info: 3024-7 - T4F Performed By: #### L 501.9520, L506.0400, L500.4100, L100.0500, L500.2500 #### [facility] [address] [place], [address] GAP 13 Normal 5-15 [facility] Comment on above: Order Comment: Order Date: 03/18/25 Order Info: 666- - BMP Order Info: 44229-1 - LIPID Order Info: 3016-3 - TSH Order Info: 3024-7 - T4F Performed By: #### L 501.9520, L506.0400, L500.4100, L100.0500, L500.2500 #### [facility] [address] [place], [address] GFR/1.73 sq M.predicted among non-blacks MDRD (S/P/Bld) [Vol rate/Area] 89 mL/min/{1.73_m2} Normal >60 [facility] Comment on above: Order Comment: Order Date: 03/18/25 Order Info: 666-08 - BMP Order Info: 27067-7 - LIPID Order Info: 3 - TSH Order Info: 3024-7 - T4F Result Comment: mL/m in/1.73m2 CKD-EPI Creatinine Equation (2020) Performed By: #### L 501.9520, L506.0400, L500.4100, L100.0500, L500.2500 #### [facility] [address] [place], [address] Glucose [Mass/Vol] 95 mg/dL Normal 70-99 [facility] Comment on above: Order Comment: Order Date: 03/18/25 Order Info: 666-08 - BMP Order Info: 38052-5 - LIPID Order Info: 3016-3 - TSH Order Info: 3024-7 - T4F Performed By: #### L 501.9520, L506.0400, L500.4100, L100.0500, L500.2500 #### [facility] [address] [place], [address] Potassium [Moles/Vol] 4.2 mmol/L Normal 3.3-5.1 [facility] Comment on above: Order Comment: Order Date: 03/18/25 Order Info: 666-08 - BMP Order Info: 64553-0 - LIPID Order Info: 3 - TSH Order Info: 3023-7 - T4F Performed By: #### L 501.9520, L506.0400, L500.4100, L100.0500, L500.2500 #### [facility] [address] [place], [address] Sodium [Moles/Vol] 139 mmol/L Normal 133-145 [facility] Comment on above: Order Comment: Order Date: 03/18/25 Order Info: 666-08 - BMP Order Info: - LIPID Order Info: 3 - TSH Order Info: 7 - T4F Performed By: #### L 501.9520, L506.0400, L500.4100, L100.0500, L500.2500 #### [facility] [address] [place], [address] Urea nitrogen [Mass/Vol] 15 mg/dL Normal 4-19 [facility] Comment on above: Order Comment: Order Date: 03/18/25 Order Info: 666-08 - BMP Order Info: 69800-3 - LIPID Order Info: 3 - TSH Order Info: 4-7 - T4F Performed By: #### L 501.9520, L506.0400, L500.4100, L100.0500, L500.2500 #### [facility] [address] [place], [address] CBC-Complete Blood Cnt No Di ffon 03-18-2025 Erythrocyte distribution width (RBC) [Ratio] 12.5 % Normal 11.6-14.6 [facility] Comment on above: Order Comment: Order Date: 03/18/25 Order Info: 10298-3 - CBC Performed By: #### L 501.9520, L506.0400, L500.4100, L100.0500, L500.2500 #### [facility] [address] [place], [address] Hematocrit (Bld) [Volume fraction] 40.1 % Normal 37-47 [facility] Comment on above: Order Comment: Order Date: 03/18/25 Order Info: [id number] - CBC Performed By: #### L 501.9520, L506.0400, L500.4100, L100.0500, L500.2500 #### [facility] [address] [place], [address] Hemoglobin (Bld) [Mass/Vol] 13.3 g/dL Normal 12.0-15.0 [facility] Comment on above: Order Comment: Order Date: 03/18/25 Order Info: 34853-9 - CBC Performed By: #### L 501.9520, L506.0400, L500.4100, L100.0500, L500.2500 #### [facility] [address] [place], [address] MCH (RBC) [Entitic mass] 29.4 pg Normal 27.0-32.0 [facility] Comment on above: Order Comment: Order Date: 03/18/25 Order Info: 78544-8 - CBC Performed By: #### L 501.9520, L506.0400, L500.4100, L100.0500, L500.2500 #### [facility] [address] [place], [address] MCHC (RBC) [Mass/Vol] 33.2 g/dL Normal 32-36 [facility] Comment on above: Order Comment: Order Date: 03/18/25 Order Info: 24270-7 - CBC Performed By: #### L 501.9520, L506.0400, L500.4100, L100.0500, L500.2500 #### [facility] [address] [place], [address] MCV (RBC) [Entitic vol] 88.7 fL Normal 81-99 [facility] Comment on above: Order Comment: Order Date: 03/18/25 Order Info: 38213-9 - CBC Performed By: #### L 501.9520, L506.0400, L500.4100, L100.0500, L500.2500 #### [facility] [address] [place], [address] Platelet mean volume (Bld) [Entitic vol] 10.0 fL Normal 6.2-12.0 [facility] Comment on above: Order Comment: Order Date: 03/18/25 Order Info: 12004-0 - CBC Performed By: #### L 501.9520, L506.0400, L500.4100, L100.0500, L500.2500 #### [facility] [address] [place], [address] Platelets (Bld) [#/Vol] 242 10*3/uL Normal 150-450 [facility] Comment on above: Order Comment: Order Date: 03/18/25 Order Info: [id number] - CBC Performed By: #### L 501.9520, L506.0400, L500.4100, L100.0500, L500.2500 #### [facility] [address] [place], [address] RBC (Bld) [#/Vol] 4.52 10*6/uL Normal 4.2-5.4 [facility] Comment on above: Order Comment: Order Date: 03/18/25 Order Info: 64113-1 - CBC Performed By: #### L 501.9520, L506.0400, L500.4100, L100.0500, L500.2500 #### [facility] [address] [place], [address] RDW SD 40.7 fl Normal 35.1-43.9 [facility] Comment on above: Order Comment: Order Date: 03/18/25 Order Info: [id number] - CBC Performed By: #### L 501.9520, L506.0400, L500.4100, L100.0500, L500.2500 #### [facility] [address] [facility] [place], [place], [address] WBC (Bld) [#/Vol] 4.1 10*3/uL Low 4.4-11.0 [facility] Comment on above: Order Comment: Order Date: 03/18/25 Order Info: [id number] - CBC Performed By: #### L 501.9520, L506.0400, L500.4100, L100.0500, L500.2500 #### [facility] [address] [place], [place], [address] Calculated very low density lipoprotein (VLDL) cholesterol measurementOrdered By: Marty White on 03-18-2025 Calculated very low density lipoprotein (VLDL) cholesterol measurement 19 mg/dL 5-40 [facility] Carbon dioxide, total [Moles /volume] in Central venous bloodOrdered By: Marty White on 03-18-2025 CO2 [Moles/Vol] 23.9 mmol/L 21.0-32.0 [facility] Chloride assayOrdered By: Kalyn White on 03-18-2025 Chloride [Moles/Vol] 102 mmol/L 98-108 [facility] Erythrocyte distribution wid th ratioOrdered By: Marty White on 03-18-2025 Erythrocyte distribution width (RBC) [Ratio] 12.5 % 11.6-14.6 [facility] Erythrocyte distribution wid th standard deviationOrdered By: Marty White on 03-18-2025 Erythrocyte distribution width (RBC) [Ratio] 40.7 fl 35.1-43.9 [facility] Free G6Fntesbk By: Rivera White on 03-18-2025 Free T3 [Mass/Vol] 3.8 pg/mL 2.18-3.98 [facility] Glomerular filtration rate ( GFR) estimation/1.73 sq m using serum, plasma, or whole bOrdered By: Marty White on 03-18-2025 GFR/1.73 sq M.predicted among non-blacks MDRD (S/P/Bld) [Vol rate/Area] 89 mL/min/{1.73_m2} >60 [facility] Comment on above: mL/min/1.73m2 CKD-EP I Creatinine Equation (2020) Hematocrit Auto (Bld) [Volum e fraction]Ordered By: Marty White on 03-18-2025 Hematocrit (Bld) [Volume fraction] 40.1 % 37-47 [facility] Hemoglobin measurementOrdere d By: Marty White on 03-18-2025 Hemoglobin (Bld) [Mass/Vol] 13.3 g/dL 12.0-15.0 [facility] LDL calc ser/plasOrdered By: Marty White on 03-18-2025 Cholesterol in LDL [Mass/Vol] 91 mg/dL [facility] Comment on above: Zfaoazkzfj=792-080 m g/dL & Higher Xhjb=264 mg/dL or greaterFriedwald Equation for LDL-C Lipid Profileon 03-18-2025 CHOL:HDL 3.10 Normal [facility] Comment on above: Order Comment: Order Date: 03/18/25 Order Info: 0667-1 - BMP Order Info: 49920-6 - LIPID Order Info: 3016-3 - TSH Order Info: 3024-7 - T4F Performed By: #### L 501.9520, L506.0400, L500.4100, L100.0500, L500.2500 #### [facility] [address] [place], [place], [address] Cholesterol [Mass/Vol] 162 mg/dL Normal <=200 [facility] Comment on above: Order Comment: Order Date: 03/18/25 Order Info: 0667-1 - BMP Order Info: 97154-2 - LIPID Order Info: 30163 - TSH Order Info: 3024-7 - T4F Result Comment: Chol esterol level, Desirable <200 mg/dL Borderline high cholesterol 200-239 mg/dL High cholesterol >=240 mg/dL Recommendations of the NCEP Adult Treatment Panel for the following risk-cutoff thresholds for the [place] population. Performed By: #### L 501.9520, L506.0400, L500.4100, L100.0500, L500.2500 #### [facility] [address] [place], [address] Cholesterol in HDL [Mass/Vol] 52 mg/dL Normal [facility] Comment on above: Order Comment: Order Date: 03/18/25 Order Info: 666-08 - BMP Order Info: - LIPID Order Info: 3015-09 - TSH Order Info: 3024-01 - T4F Result Comment: Aruna onal Cholesterol Education Program (NCEP) guidelines: <40 mg/dL: Low HDL-cholesterol (major risk factor for CHD) >= 60 mg/dL: High HDL-cholesterol (negative risk factor for CHD) HDL-cholesterol is affected by a number of factors, e.g. smoking, exercise, hormones, sex and age. Performed By: #### L 501.9520, L506.0400, L500.4100, L100.0500, L500.2500 #### [facility] [address] [place], [address] Cholesterol in LDL [Mass/Vol] 91 mg/dL Normal [facility] Comment on above: Order Comment: Order Date: 03/18/25 Order Info: 666-08 - BMP Order Info: - LIPID Order Info: 3015-09 - TSH Order Info: 3024-01 T4F Result Comment: Bord ulhlbw=127-163 mg/dL Higher Jpwe=950 mg/dL or greater Friedwald Equation for LDL-C Performed By: #### L 501.9520, L506.0400, L500.4100, L100.0500, L500.2500 #### [facility] [address] [place], [address] Cholesterol in VLDL [Mass/Vol] 19 mg/dL Normal 5-40 [facility] Comment on above: Order Comment: Order Date: 03/18/25 Order Info: 666-08 - BMP Order Info: - LIPID Order Info: 3015-09 - TSH Order Info: 3024-01 T4F Performed By: #### L 501.9520, L506.0400, L500.4100, L100.0500, L500.2500 #### [facility] [address] [place], [place], [address] Triglyceride [Mass/Vol] 95 mg/dL Normal [facility] Comment on above: Order Comment: Order Date: 03/18/25 Order Info: 0667-1 - BMP Order Info: 38731-9 - LIPID Order Info: 3016-3 - TSH Order Info: 3024-7 - T4F Result Comment: The drugs N-Acetylcysteine and Metamizole may falsely depress this assay. Normal range: <150 mg/dL Borderline High: 150-199 mg/dL High: 200-499 mg/dL Very High: >500 mg/dL Performed By: #### L 501.9520, L506.0400, L500.4100, L100.0500, L500.2500 #### [facility] [address] [place], [place], [address] MCV (mean corpuscular volume ) determinationOrdered By: Marty White on 03-18-2025 MCV (RBC) [Entitic vol] 88.7 fL 81-99 [facility] Mean corpuscular hemoglobin (MCH) determinationOrdered By: Marty White on 03-18-2025 MCH (RBC) [Entitic mass] 29.4 pg 27.0-32.0 [facility] Mean corpuscular hemoglobin concentration (MCHC) determinationOrdered By: Marty White on 03-18-2025 MCHC (RBC) [Mass/Vol] 33.2 g/dL 32-36 [facility] Mean platelet volume determi nationOrdered By: Marty White on 03-18-2025 Platelet mean volume (Bld) [Entitic vol] 10.0 fL 6.2-12.0 [facility] Platelet countOrdered By: Kalyn White on 03-18-2025 Platelets (Bld) [#/Vol] 242 10*3/uL 150-450 [facility] Potassium measurement (mass/ volume)Ordered By: Marty White on 03-18-2025 Potassium (Unsp spec) [Mass/Vol] 4.2 mmol/L 3.3-5.1 [facility] RBC Auto (Bld) [#/Vol]Ordere d By: Marty White on 03-18-2025 RBC (Bld) [#/Vol] 4.52 10*6/uL 4.2-5.4 [facility] Screening total cholesterol/ high density lipoprotein (HDL) cholesterol ratioOrdered By: Marty White on 03-18-2025 Cholesterol.total/Choles terol in HDL [Mass ratio] 3.10 {ratio} [facility] Serum creatinine measurement (mass/volume)Ordered By: Marty White on 03-18-2025 Creatinine [Mass/Vol] 0.74 mg/dL 0.70-1.20 [facility] Serum glucose measurement (m ass/volume)Ordered By: Marty White on 03-18-2025 Glucose [Mass/Vol] 95 mg/dL 70-99 [facility] Serum or plasma calcium tony urement (mass/volume)Ordered By: Marty White on 03-18-2025 Calcium [Mass/Vol] 9.7 mg/dL 7.6-11.0 [facility] Serum or plasma cholesterol in HDL measurement (mass/volume)Ordered By: Marty White on 03-18-2025 Cholesterol in HDL [Mass/Vol] 52 mg/dL >40 [facility] Comment on above: National Cholesterol Education Program (NCEP) guidelines:<40 mg/dL: Low HDL-cholesterol (major risk factor for CHD)>= 60 mg/dL: High HDL-cholesterol (negative risk factor for CHD)HDL-cholesterol is affected by a number of factors, e.g. smoking, exercise, hormones, sex and age. Serum or plasma cholesterol measurement (mass/volume)Ordered By: Marty White on 03-18-2025 Cholesterol [Mass/Vol] 162 mg/dL <201 [facility] Comment on above: Cholesterol level, D esirable <200 mg/dLBorderline high cholesterol 200-239 mg/dLHigh cholesterol >=240 mg/dLRecommendations of the NCEP Adult Treatment Panel for the following risk-cutoff thresholds for the [place] population. Serum or plasma urea nitroge n measurement (mass/volume)Ordered By: Maryt White on 03-18-2025 Urea nitrogen [Mass/Vol] 15 mg/dL 4-19 [facility] Sodium levelOrdered By: Marci yovani Christopher on 03-18-2025 Sodium [Moles/Vol] 139 mmol/L 133-145 [facility] T4 Free Directon 03-18-2025 T4 FREE DIRECT 1.20 ng/dL Normal 0.76-1.46 [facility] Comment on above: Order Comment: Order Date: 03/18/25 Order Info: 0667-1 - BMP Order Info: 47927-6 - LIPID Order Info: 3 - TSH Order Info: 3024-01 - T4F Performed By: #### L 501.9520, L506.0400, L500.4100, L100.0500, L500.2500 #### [facility] [address] [facility] [place], [address] T4 freeOrdered By: Rivera White on 03-18-2025 Free T4 [Mass/Vol] 1.20 ng/dL 0.76-1.46 [facility] TSH DL <= 0.005 mIU/L QnOrde red By: Marty White on 03-18-2025 TSH Qn 0.099 uIU/mL Low 0.300-4.200 [facility] Thyroid Stim Hormone (TSH)on 03-18-2025 TSH 0.099 uIU/mL Low 0.300-4.200 [facility] Comment on above: Order Comment: Order Date: 03/18/25 Order Info: 0667-1 - BMP Order Info: 65766-8 - LIPID Order Info: 3 - TSH Order Info: 3024-01 - T4F Performed By: #### L 501.9520, L506.0400, L500.4100, L100.0500, L500.2500 #### [facility] [address] [place], [place], [address] Triglycerides measurementOrd ered By: Marty White on 03-18-2025 Triglyceride [Mass/Vol] 95 mg/dL <199 [facility] Comment on above: The drugs N-Acetylcy steine and Metamizole may falsely depress this assay. Normal range: <150 mg/dLBorderline High: 150-199 mg/dLHigh: 200-499 mg/dLVery High: >500 mg/dL White blood cell (WBC) count Ordered By: Marty White on 03-18-2025 WBC (Bld) [#/Vol] 4.1 10*3/uL Low 4.4-11.0 [facility] Elbow min 3 Viewson 03-01-20 Elbow min 3 Views [facility] Imaging Services [address] [place], [place] [id number] Elbow min 3 Views MR#: [id number] Acct: [id number] Name: DIOMEDES CALVO Rep #: [id number] : 1960 F 64 From: Stanford Chopra PCP: Dr. Marty White MD Status: REG ER Study: Elbow min 3 Views Date of Exam: 03/01/25 Exam# [id number] Ordering Dr: Richar Carrillo DO PROCEDURE: ELBOW MIN 3 VIEWS 03/01/2025 REASON FOR EXAM: PAIN TECHNIQUE: ELBOW MIN 3 VIEWS COMPARISON: None RAD/Elbow min 3 Views IMPRESSION: No acute fracture or dislocations. Scattered minimal degenerative changes. Minimal joint effusion. No acute soft tissue abnormalities. No radiographic foreign body. Reading Location: [id number] CC: Dr. Richar Carrillo DO; Dr. Marty White MD Web Assistant: Signed Normal [facility] Emergency Department Summary on 03-01-2025 Emergency Department Summary [facility] Medical Records Department [address] [place] [address] Emergency Department Summary 03/01/25 MR#: [id number] Acct: [id number] Name: DIOMEDES CALVO PIERRE Rep #: [id number] : 1960 64 From: Richar Carrillo DO PCP: Dr. Marty White MD Status:REG ER Location: ED HPI History of Present Illness Chief Complaint: Upper Extremity Injury Narrative Narrative: Chief complaint and HPI: Left elbow pain. 64-year-old female presents for evaluation of left elbow pain. Patient states she was walking when she tripped and fell onto her left upper extremity. States she has pain in the left elbow with supination and pronation. No pain with flexion or extension. Denies injury to the shoulder, wrist, hand. No numbness or tingling. Denies injury elsewhere. Has not taken anything for the pain. Review of systems: See HPI Medications: As listed on the chart Allergies: As listed on the chart PFSH: Per chart Vital signs: As listed on the chart. Reviewed. Physical exam: Gen: A O x3, NAD Head: Normocephalic, atraumatic Eyes: No sclera icterus, conjunctiva clear ENT: Moist mucous membranes Neck: Full range of motion CV: Regular rate Resp: Nonlabored respiration Musc: Full ROM active and passive range of motion of the left upper extremity -does endorse pain with supination and pronation in the left elbow, no erythema/warmth/ecch ymosis/crepitus of the left upper extremity including the elbow, radial pulse +2, good capillary refill, sensation intact, compartments soft, mild tenderness to palpation of the left shoulder but otherwise no tenderness of the left upper extremity Skin: Warm, dry Neuro: Alert, oriented, grossly intact, sensation intact Psych: Cooperative, appropriate mood and affect [facility] Medical History (Updated 03/01/25 @ 14:[address] Richar Carrillo DO) Wears glasses Cancer Migraine headache Syncope Non-smoker History of pain when walking History of edema History of rheumatic fever Home Medications ???Medication ???Instructions ???Recorded ???Last Taken ???Type NK 04/27/22 Unknown History Allergy/AdvReac Type Severity Reaction Status Date / Time No Known Allergies Allergy Verified 03/01/25 12:19 Family History (Updated 04/27/22 @ 08:30 by Summer Villanueva) Mother Leukemia High cholesterol Father Diabetes High cholesterol Thyroid disorder Surgical History Hx of colonoscopy S/P S/P tonsillectomy Social History (Updated 04/27/22 @ 08:31 by Summer Villanueva) Smoking Status: Never smoker alcohol intake: never substance use type: does not use EXAM Physical Exam Const Vital Signs: 03/01/25 12:19 03/01/25 13:10 Temperature 98 F Temperature Source Temporal Pulse Rate 86 Respiratory Rate 18 Respiratory Effort Normal Respiratory Depth Normal Respiratory Pattern Normal Blood Pressure 155/88 H Blood Pressure Mean 110 Pulse Ox 100 Oxygen Delivery Method Room Air Room Air MDM MDM MDM Narrative Medical decision making narrative: 64-year-old female presents for evaluation of left elbow pain. Patient states she was walking when she tripped and fell onto her left upper extremity. States she has pain in the left elbow with supination and pronation. No pain with flexion or extension. Differential diagnosis includes but is not limited to myofascial strain, contusion, fracture. Not consistent with dislocation. Patient had workup started in triage including x-rays of the forearm, elbow, humerus. I agree with the workup that was ordered. X-ray of the forearm, elbow, humerus was personally viewed and interpreted by me, ED physician. No fracture or dislocation. Radiology in agreement except for mild swelling. Patient's symptoms are likely secondary to contusion. Tylenol and ibuprofen as needed for pain. Rest. Follow-up with PCP. Return precautions explained. They confirmed understanding. Patient stable to discharge home. Impression: 1. Left elbow contusion 2. Mechanical fall Discharge Plan Triage Chief Complaint: Upper Extremity Injury Other Complaint: Fall ED Provider: Richar Carrillo Dx/Rx/DC Orders Clinical Impression: Contusion of elbow, left Instructions: Bruises (Contusions) Prescriptions: No Action NK Primary Care Provider: Marty White Referrals: Marty White MD [Primary Care Provider] - 3-5 Days Activity Restrictions/Additio nal Instructions: Follow-up with primary care physician. Tylenol and ibuprofen as needed for pain. Print Language: Kazakh Disposition Disposition: Home, Self Care What to do if you have Problems For any increased pain, shortness of breath, bleeding, nausea or vomiting (more content not included)... Normal [facility] Forearm 2 Viewson 08-01-2025 Forearm 2 Views [facility] Imaging Services [address] [place] [address] Forearm 2 Views MR#: [id number] Acct: [id number] Name: DIOMEDES CALVO Rep #: [id number] : 1960 F 64 From: Stanford Chopra PCP: Dr. Marty White MD Status: REG ER Study: Forearm 2 Views Date of Exam: 03/01/25 Exam# [id number] Ordering Dr: Richar Carrillo DO PROCEDURE: FOREARM 2 VIEWS 03/01/2025 REASON FOR EXAM: PAIN TECHNIQUE: FOREARM 2 VIEWS COMPARISON: none RAD/Forearm 2 Views IMPRESSION: No acute fracture or dislocations. Scattered minimal degenerative changes. No acute soft tissue abnormalities. No radiographic foreign body. Reading Location: [facility] CC: Dr. Richar Carrillo DO; Dr. Marty White MD Web Assistant: Signed Normal [facility] Humerus min 2 Viewson 2024 Humerus min 2 Views [facility] Imaging Services [address] [place] [address] Humerus min 2 Views MR#: [id number] Acct: [id number] Name: DIOMEDES CALVO Rep #: [id number] : 1960 F 64 From: Stanford Chopra PCP: Dr. Marty White MD Status: REG ER Study: Humerus min 2 Views Date of Exam: 03/01/25 Exam# [id number] Ordering Dr: Richar Carrillo DO PROCEDURE: HUMERUS MIN 2 VIEWS 03/01/2025 REASON FOR EXAM: PAIN TECHNIQUE: HUMERUS MIN 2 VIEWS COMPARISON: None RAD/Humerus min 2 Views IMPRESSION: No acute fracture or dislocations. Scattered minimal degenerative changes. No acute soft tissue abnormalities. No radiographic foreign body. Reading Location: [facility] CC: Dr. Richar Carrillo DO; Dr. Marty White MD Web Assistant: Signed Normal [facility] Absolute lymphocyte counton 05-04-2022 Lymphocytes Auto (Unsp spec) [#/Vol] 1.26 10*3/uL 0.83-4.51 [facility] Work Phone: Basophil percentageon 2021 Basophils/100 WBC (Bld) 0.9 % 0-1 [facility] Work Phone: Chloride [Moles/Vol] 107 mmol/L 98-107 [facility] Work Phone: Eosinophils/100 WBC (Bld) 1.1 % 0-5 [facility] Work Phone: Glucose [Mass/Vol] 96 mg/dL 74-106 [facility] Work Phone: Neutrophils (Bld) [#/Vol] 2.7 10*3/uL 2.0-7.7 [facility] Work Phone: Neutrophils/100 WBC (Bld) 59.6 % 47-70 [facility] Work Phone: Potassium [Moles/Vol] 4.1 mmol/L 3.5-5.1 [facility] Work Phone: Sodium [Moles/Vol] 141 mmol/L 136-145 [facility] Work Phone: WBC (Bld) [#/Vol] 4.6 10*3/uL 4.4-11.0 [facility] Work Phone: Blood erythrocytes count (nu mber/volume)on 05-04-2022 RBC (Bld) [#/Vol] 4.47 10*6/uL 4.2-5.4 [facility] Work Phone: Blood hemoglobin measurement (mass/volume)on 05-04-2022 Hemoglobin (Bld) [Mass/Vol] 13.4 g/dL 12.0-15.0 [facility] Work Phone: Blood lymphocytes/100 leukoc yteson 05-04-2022 Lymphocytes/100 WBC (Bld) 27.7 % 19-41 [facility] Work Phone: Blood monocytes/100 leukocyt eson 05-04-2022 Monocytes/100 WBC (Bld) 10.5 % 0-10 [facility] Work Phone: Blood platelet mean volumeon 05-04-2022 Platelet mean volume (Bld) [Entitic vol] 10.0 fL 6.2-12.0 [facility] Work Phone: Determination of erythrocyte mean corpuscular volume (MCV)on 05-04-2022 MCV (RBC) [Entitic vol] 89.9 fL 81-99 [facility] Work Phone: Hematocrit Auto (Bld) [Volum e fraction]on 05-04-2022 Hematocrit (Bld) [Volume fraction] 40.2 % 37-47 [facility] Work Phone: Laboratory - Chemistry and C hemistry - challengeon 05-04-2022 CO2 [Moles/Vol] 29.0 mmol/L 21.0-32.0 [facility] Work Phone: Urea nitrogen/Creatinine [Mass ratio] 19.6 mg/mg 10-20 [facility] Work Phone: Laboratory - Hematology and Cell countson 05-04-2022 Erythrocyte distribution width (RBC) [Entitic vol] 42.0 fL 35.1-43.9 [facility] Work Phone: Erythrocyte distribution width (RBC) [Ratio] 12.7 % 11.6-14.6 [facility] Work Phone: Immature granulocytes/100 WBC (Bld) 0.200 % 0.0-0.9 [facility] Work Phone: Comment on above: IG% - Immature Granu locytes (promyelocytes, myelocytes and metamyelocytes) > 1% indicates that a LEFT SHIFT is Present. MCH (RBC) [Entitic mass] 30.0 pg 27.0-32.0 [facility] Work Phone: Nucleated RBC/100 WBC (Bld) [Ratio] 0 % 0-5 [facility] Work Phone: MCHC Auto (RBC) [Mass/Vol]on 05-04-2022 MCHC (RBC) [Mass/Vol] 33.3 g/dL 32-36 [facility] Work Phone: No Panel Informationon 05-04 Estimated GFR (MDRD) Amer 106 mL/min >60 [facility] Work Phone: Comment on above: GFR Calc Estimated GFR (MDRD) Non-Af Amer 87 mL/min >60 [facility] Work Phone: Comment on above: Non- GFR Calc Platelets bldon 05-04-2022 Platelets (Bld) [#/Vol] 231 10*3/uL 150-450 [facility] Work Phone: Serum or plasma calcium tony urement (mass/volume)on 05-04-2022 Calcium [Mass/Vol] 9.4 mg/dL 8.5-10.1 [facility] Work Phone: Serum or plasma creatinine m easurement (mass/volume)on 05-04-2022 Creatinine [Mass/Vol] 0.72 mg/dL 0.55-1.02 [facility] Work Phone: Comment on above: The validity of the calculated GFR & GFRAA in patients over 70 years has not been determined. Clinical correlation is essential. Serum or plasma urea nitroge n measurement (mass/volume)on 05-04-2022 Urea nitrogen [Mass/Vol] 14 mg/dL 7-18 [facility] Work Phone: Thin prep Papanicolaou smear with manual screeningon 05-04-2022 Thin prep Papanicolaou smear with manual screening 5 5-15 [facility] Work Phone: Cervical or vagninal specime n microscopic examination by cytology stain (reported ason 03-30-2022 Cytology report Cyto stain Doc (Cvx/Vag) Comment . [facility] Work Phone: Comment on above: The Pap smear is a s creening test designed to aid in thedetection of premalignant and malignant conditions of theuterine cervix. It is not a diagnostic procedure andshould not be used as the sole means of detecting cervicalcancer. Both false-positive and false-negative reports dooccur. Detection in cervical specim en of any of human papilloma virus (HPV) 16, 18, 31, 33,on 03-30-2022 HPV 16+18+31+33+35+39+45+51+ 52+56+58+59+66+68 DNA Probe+sig amp Ql (Cvx) Negative Negative [facility] Work Phone: Comment on above: This nucleic acid am plification test detects fourteen high-risk HPV types (16,18,31,33,35,39,45,51,52,56,58,59,66,68)without differentiation.Performed at: - [facility] [id number] Director: Ashley Ferro MD, Phone: [phone] at: = - [facility] [id number] Director: Ashley Ferro MD, Phone: [phone] Laboratory - Cytologyon 03-03 [employer]ing [employer] Apprentice Cyto stain Nom (Cvx/Vag) [ID] Comment . [facility] Work Phone: Comment on above: Brian Gallardo ytotechnologist (ASCP) Laboratory - Miscellaneous t estson 03-30-2022 Service comment (Unsp spec) [Interp] Comment . [facility] Work Phone: Comment on above: This liquid based Th inPrep(R) pap test was screened withthe use of an image guided system. Service comment (Unsp spec) [Interp] . . [facility] Work Phone: No Panel Informationon 03-30 Pathology report final diagnosis Narrative Comment . [facility] Work Phone: Comment on above: NEGATIVE FOR INTRAEP ITHELIAL LESION OR MALIGNANCY.CELLULAR CHANGES ASSOCIATED WITH ATROPHY AND INFLAMMATION ARE PRESENT. Vital Signs Date Time Vital Sign Value Performing Clinician Faci lity 03-01-2025 14:41-0400 Body temperature 98 [degF] Dr. Richar Carrillo DO Work Phone: [phone] [place] [address] 03-01-2025 14:41-0400 Diastolic blood pressure 88 mm[Hg] Dr. Richar Carrillo DO Work Phone: 1(725)[phone] [place] [address] 03-01-2025 14:41-0400 Heart rate 86 /min Dr. Richar Carrillo DO Work Phone: 2(492)[phone] [place] [address] 03-01-2025 14:41-0400 Respiratory rate 18 /min Dr. Richar Carrillo DO Work Phone: [facility] 03-01-2025 14:41-0400 SaO2% (BldA) [Mass fraction] 100 % Dr. Richar Carrillo DO Work Phone: [facility] 03-01-2025 14:41-0400 Systolic blood pressure 155 mm[Hg] Dr. Richar Carrillo DO Work Phone: [facility] 03-01-2025 12:19-0400 Body height 172.[address] Richar Carrillo DO Work Phone: 7(439)[phone] [place] [address] 03-01-2025 12:19-0400 Body mass index (BMI) [Ratio] 23.6 kg/m2 Dr. Richar Carrillo DO Work Phone: [facility] 03-01-2025 12:19-0400 Body weight 70.[address] Richar Carrillo DO Work Phone: [facility] 05-06-2022 15:41-0400 Body temperature 96.8 [degF] Dr. Haley Wellington Work Phone: [facility] Work Phone: 05-06-2022 15:41-0400 Diastolic blood pressure 79 mm[Hg] Dr. Haley Wellington Work Phone: [facility] Work Phone: 05-06-2022 15:41-0400 Heart rate 58 /min Dr. Haley Wellington Work Phone: [facility] Work Phone: 05-06-2022 15:41-0400 Respiratory rate 16 /min Dr. Haley Wellington Work Phone: [facility] Work Phone: 05-06-2022 15:41-0400 SaO2% (BldA) [Mass fraction] 100 % Dr. Haley Wellington Work Phone: [facility] Work Phone: 05-06-2022 15:41-0400 Systolic blood pressure 129 mm[Hg] Dr. Haley Wellington Work Phone: [facility] Work Phone: 05-06-2022 10:45-0400 Body height 172.[address] Haley Wellington Work Phone: [facility] Work Phone: 05-06-2022 10:45-0400 Body mass index (BMI) [Ratio] 23.4 kg/m2 Dr. Haley Wellington Work Phone: [facility] Work Phone: 05-06-2022 10:45-0400 Body weight [address] Haley Wellington Work Phone: [facility] Work Phone: 04-27-2022 08:31-0400 Body height 167.[address] Haley Wellington Work Phone: [facility] Work Phone: 04-27-2022 08:31-0400 Body mass index (BMI) [Ratio] 25.2 kg/m2 Dr. Haley Wellington Work Phone: [facility] Work Phone: 04-27-2022 08:31-0400 Body temperature 97.4 [degF] Dr. Haley Wellington Work Phone: [facility] Work Phone: 04-27-2022 08:31-0400 Body weight 70.[address] Haley Wellington Work Phone: [facility] Work Phone: 04-27-2022 08:31-0400 Diastolic blood pressure 81 mm[Hg] Dr. Haley Wellington Work Phone: [facility] Work Phone: 04-27-2022 08:31-0400 Heart rate 80 /min Dr. Haley Wellington Work Phone: [facility] Work Phone: 04-27-2022 08:31-0400 Respiratory rate 16 /min Dr. Haley Wellington Work Phone: [facility] Work Phone: 04-27-2022 08:31-0400 SaO2% (BldA) [Mass fraction] 97 % Dr. Haley Wellington Work Phone: [facility] Work Phone: 04-27-2022 08:31-0400 Systolic blood pressure 153 mm[Hg] Dr. Haley Wellington Work Phone: [facility] Work Phone: Encounters Encounter Date Encounter Type Care Provider Facility Start: 04-30-2025 ambulatory Marty Agee lity:[facility] Start: 04-24-2025 ambulatory Marty Agee lity:[facility] Start: 03-19-2025 End: 03-19-[address] Richar Carrillo DO Work Phone: -[facility] Start: 03-19-2025 End: 03-19-[address] Marty White MD -[facility] Start: 03-18-2025 End: 03-19-[address] Richar Carrillo DO Work Phone: -[facility] Start: 03-18-2025 End: 03-18-[address] Marty White MD -[facility] Start: 03-18-2025 End: 03-18-2025 ambulatory Marty White Facility:[facility] Start: 03-01-2025 End: 03-01-2025 Emergency department patient visit Dr. Richar Carrillo DO Work Phone: -Emergency Department Work Phone: Start: 06-21-2022 End: 06-21-[address] Haley Wellington Work Phone: [facility] Work Phone: Start: 06-21-2022 End: 06-21-[address] Haley Wellington Work Phone: [facility] Start: 05-06-2022 End: 05-06-2022 Admission to same day surgery center [facility] Wellington [facility] Start: 05-06-2022 End: 05-06-2022 Non-patient / Non-visit Dr. Haley Wellington Work Phone: [facility] Start: 04-27-2022 End: 04-27-[address] Haley Wellington Work Phone: [facility] Work Phone: Start: 04-27-2022 End: 04-27-[address] Haley Wellington Work Phone: [facility]-Laboratory, Specimen Start: 04-27-2022 End: 04-27-[address] Haley Wellington Work Phone: [facility] Start: 04-23-2022 End: 04-23-[address] Haley Wellington Work Phone: [facility] Work Phone: Start: 04-23-2022 End: 04-23-2022 Patient encounter procedure [facility]-Outpatient Breast Imaging Start: 04-20-2022 End: 04-20-2022 ambulatory [facility] Work Phone: Start: 04-20-2022 End: 04-20-2022 Patient encounter procedure [facility]-Outpatient Bone Densitometry Start: 03-30-2022 End: 03-30-2022 ambulatory [facility] Work Phone: Start: 03-30-2022 End: 03-30-2022 Patient encounter procedure [facility]-Laboratory, Specimen Procedures Date Procedure Procedure Detail Performing Clinician Start: 03-01-2025 Plain x-ray of elbow Dr Joe Carrillo DO Work Phone: Start: 03-01-2025 Plain x-ray of humerus Dr. Richar Carrillo DO Work Phone: Start: 03-01-2025 XR forearm, [address] Richar Carrillo DO Work Phone: Start: 06-21-2022 US scan of thyroid Dr. Haley Wellington Work Phone: Start: 05-04-2022 Plain chest X-ray Dr. Florencia Wellington Work Phone: Start: 04-23-2022 Ultrasonography of breast Start: 04-23-[address] Haley flor Work Phone: Start: 04-20-2022 Dual energy X-ray absorptiometry Dr. Haley Wellington Work Phone: Start: 04-20-2022 Screening mammography Plan of Treatment Date Care Activity Detail Author Start: 03-01-2025 [facility] Start: 05-06-2022 Catheterization of vein [facility] Work Phone: Start: 05-06-2022 Following clinical p athway protocol [facility] Work Phone: Start: 05-06-2022 Patient discharge [facility] Work Phone: Start: 05-06-2022 Procedure discontinued [facility] Work Phone: Start: 05-06-2022 Taking patient vital signs [facility] Work Phone: Start: 05-06-2022 Vital signs measurements [facility] Work Phone: Start: 05-06-2022 [facility] Work Phone: Start: 05-06-2022 Anes rpr ruptured ac hilles tendon w/wo graft ANESTH ACHILLES TENDON SURG [facility] Work Phone: Start: 05-06-2022 Injection aa&/strd o ther peripheral nerve/branch NJX AA&/STRD OTHER PN/BRANCH [facility] Work Phone: Start: 05-06-2022 Repair primary open/ prq ruptured achilles tendon REPAIR ACHILLES TENDON [facility] Work Phone: Start: 05-06-2022 Medication education [facility] Work Phone: Start: 04-23-2022 Mammography DIAG MAMM W/CA D, UNILAT [facility] Work Phone: Start: 04-23-2022 MG Breast Diagnostic [facility] Work Phone: Start: 04-20-2022 Dual energy X-ray absorptiometry Dexa Bone Density Study [facility] Work Phone: Path report.final Dx Spec [facility] Work Phone: Patient Education Bruises (Contusions) [facility] Work Phone: Patient referral [facility] Work Phone: Immunizations Immunization Date Immunization Notes Care Provider Fa cility 10-31-2020 Covid (Pfizer) [facility] 10-10-2020 Covid (Pfizer) [facility] Payers Date Payer Category Payer Medicare [id number] 2025 Self-pay [id number] 2001 Unknown [id number] Unknown [facility] PACKAGE PLAN [id number] Unknown [id number] [id number] Unknown [id number] Unknown [id number] [id number] [id number] Unknown [id number] [id number] [id number] Unknown [id number] [id number] [id number] Social History Date Type Detail [facility] Work Phone: Start: 1960 Sex Assigned At Female [facility] Start: 04-27-2022 End: 05-05-2022 Tobacco smoking status NHIS Unknown if ever smoked [facility] Work Phone: Start: 03-01-2025 Tobacco smoking stat us PAIS Never smoked tobacco (finding) [facility] Medical Equipment Procedure Code Equipment Code Equipment Origin al Text Equipment Identifier Dates Repair, tendon, Achilles PARS SUTURE IMPLANT KIT FDA Start: 05-06-2022 Repair, tendon, Achilles ([id number]) Tendon/ligament bone anchor, bioabsorbable ([id number] FDA Start: 05-06-2022 Repair, tendon, Achilles PARS SUTURE IMPLANT KIT FDA Start: 05-06-2022 Repair, tendon, Achilles PARS SUTURE IMPLANT KIT FDA Start: 05-06-2022 Repair, tendon, Achilles PARS SUTURE IMPLANT KIT FDA Start: 05-06-2022 Goals Date Patient Goal Desired Activity /State Mental Status Date Assessment Result Facility 05-06-2022 Cognitive function Voice/Name [facility] Work Phone: Clinical Notes 03-30-2022 to 03-01-2025 Note Date & Type Note Facility 03-01-2025 Discharge summary [facility] 03-01-2025 Discharge summary Note Date/Time March 01, 2025 2:22pm [facility] Medical Records Department [address] [place] [address] Emergency Department Summary 03/01/25 MR#: [id number] Acct: [id number] Name: DIOMEDES CALVO PIERRE Rep #:[id number] : 1960 64 From: Richar Abraham ggett DO PCP: Dr. Marty White MD Status :REG ER Location: ED HPI History of Present Illness Chief Complaint: Upper Extremity Injury Narrative Narrative: Chief complaint and HPI: Left elbow pain. 64-year-old female presents for evaluation of left elbow pain. Patient states she was walking when she tripped and fell onto her left upper extremity. States she has pain in the left elbow with supination and pronation. No pain with flexion or extension. Denies injury to the shoulder, wrist, hand. No numbness or tingling. Denies injury elsewhere. Has not taken anything for the pain. Review of systems: See HPI Medications: As listed on the chart Allergies: As listed on the chart PFSH: Per chart Vital signs: As listed on the chart. Reviewed. Physical exam: Gen: A&O x3, NAD Head: Normocephalic, atraumatic Eyes: No sclera icterus, conjunctiva clear ENT: Moist mucous membranes Neck: Full range of motion CV: Regular rate Resp: Nonlabored respiration Musc: Full ROM active and passive range of motion of the left upper extremity -does endorse pain with supination and pronation in the left elbow, no erythema/warmth/ecchymosis/crepitus of the left upper extremity including the elbow, radial pulse +2, good capillary refill, sensation intact, compartments soft, mild tenderness to palpation of the left shoulder but otherwise no tenderness of the left upper extremity Skin: Warm, dry Neuro: Alert, oriented, grossly intact, sensation intact Psych: Cooperative, appropriate mood and affect PFSH PFSH Medical History (Updated 03/01/25 @ 14:[address] Richar Carrillo, DO) Wears glasses Cancer Migraine headache Syncope Non-smoker History of pain when walking History of edema History of rheumatic fever Home Medications ?Medication ?Instructions ?Recorded ?Last Taken ?Type NK 04/27/22 Unknown History Allergy/AdvReac Type Severity Reaction Status Date / Time No Known Allergies Allergy Verified 03/01/25 12:19 Family History (Updated 04/27/22 @ 08:30 by Summer Villanueva) Mother Leukemia High cholesterol Father Diabetes High cholesterol Thyroid disorder Surgical History Hx of colonoscopy S/P S/P tonsillectomy Social History (Updated 04/27/22 @ 08:31 by Summer Villanueva) Smoking Status: Never smoker alcohol intake: never substance use type: does not use EXAM Physical Exam Const Vital Signs: 03/01/25 12:19 03/01/25 13:10 Temperature 98 F Temperature Source Temporal Pulse Rate 86 Respiratory Rate 18 Respiratory Effort Normal Respiratory Depth Normal Respiratory Pattern Normal Blood Pressure 155/88 H Blood Pressure Mean 110 Pulse Ox 100 Oxygen Delivery Method Room Air Room Air MDM MDM MDM Narrative Medical decision making narrative: 64-year-old female presents for evaluation of left elbow pain. Patient states she was walking when she tripped and fell onto her left upper extremity. Statesshe has pain in the left elbow with supination and pronation. No pain with flexion or extension. Differential diagnosis includes but is not limited to myofascial strain, contusion, fracture. Not consistent with dislocation. Patient had workup started in triage including x-rays of the forearm, elbow, humerus. I agree with the workup that was ordered. X-ray of the forearm, elbow, humerus was personally viewed and interpreted by me, ED physician. No fracture or dislocation. Radiology in agreement except for mild swelling. Patient's symptoms are likely secondary to contusion. Tylenol and ibuprofen as needed for pain. Rest. Follow-up with PCP. Return precautions explained. They confirmed understanding. Patient stable to discharge home. Impression: 1. Left elbow contusion 2. Mechanical fall Discharge Plan Triage Chief Complaint: Upper Extremity Injury Other Complaint: Fall ED Provider: Richar Carrillo Dx/Rx/DC Orders Clinical Impression: Contusion of elbow, left Instructions: Bruises (Contusions) Prescriptions: No Action NK Primary Care Provider: Marty White Referrals: Marty hWite MD [Primary Care Provider] - 3-5 Days Activity Restrictions/Additional Instructions: Follow-up with primary care physician. Tylenol and ibuprofen as needed for pain. Print Language: Kazakh Disposition Disposition: Home, Self Care What to do if you have Problems For any increased pain, shortness of breath, bleeding, nausea or vomiting, chestpain, or any unexpected problems, contact your Primary Care Provider. Call [facility] ([phone]) or report to the closest Emergency Room. Call 911 if necessary. 03/01/25 1422 <Electronically signed by Richar Carrillo DO> Cosigner Signature (if applicable): CC: Dr. Marty White MD ~ Signed [facility] Work Phone: 1(481) 680-428308-01-2025 Radiology Diagnostic study note [facility] Imaging Services [address] [place] [id number] Humerus min 2 Views MR#: [id number] Acct: [id number] Name: DIOMEDES CALVO PIERRE Rep #: [id number] : 1960 F 64 From: Morelia Womack MD PCP: Dr. Marty White MD Status: REG ER Study:Humerus min 2 Views Date of Exam: 03/01/25 Exam# [id number] Ordering Dr: Richar Olson DO PROCEDURE: HUMERUS MIN 2 VIEWS 03/01/2025 REASON FOR EXAM: PAIN TECHNIQUE: HUMERUS MIN 2 VIEWS COMPARISON: None RAD/Humerus min 2 Views IMPRESSION: No acute fracture or dislocations. Scattered minimal degenerative changes. No acute soft tissue abnormalities. No radiographic foreign body. Reading Location: [facility] CC: Dr. Richar Carrillo DO; Dr. Marty White MD ~ Web Assistant: Signed [facility]08-01-2025 Radiology Diagnostic study note [facility] Imaging Services [address] [place] [address] Elbow min 3 Views MR#: [id number] Acct: [id number] Name: DIOMEDES CALVO Rep #: [id number] : 1960 From: Morelia Womack MD PCP: Dr. Marty White MD Status: REG ER Study:Elbow min 3 Views Date of Exam: Exam# [id number] Ordering Dr: Richar Olson DO PROCEDURE: ELBOW MIN 3 VIEWS 03/01/2025 REASON FOR EXAM: PAIN TECHNIQUE: ELBOW MIN 3 VIEWS COMPARISON: None RAD/Elbow min 3 Views IMPRESSION: No acute fracture or dislocations. Scattered minimal degenerative changes. Minimal joint effusion. No acute soft tissue abnormalities. No radiographic foreign body. Reading Location: [facility] CC: Dr. Richar Carrillo DO; Dr. Marty White MD ~ Web Assistant: Signed [facility]08-01-2025 Radiology Diagnostic study note [facility] Imaging Services [address] [place], [place] [id number] Forearm 2 Views MR#: [id number] Acct: [id number] Name: DIOMEDES CALVOEVGENY JAY Rep #: [id number] : 1960 From: Morelia Womack MD PCP: Dr. Marty White MD Status: REG ER Study:Forearm 2 Views Date of Exam: 08/25 Exam# [id number] Ordering Dr: Richar Olson DO PROCEDURE: FOREARM 2 VIEWS 03/01/2025 REASON FOR EXAM: PAIN TECHNIQUE: FOREARM 2 VIEWS COMPARISON: none RAD/Forearm 2 Views IMPRESSION: No acute fracture or dislocations. Scattered minimal degenerative changes. No acute soft tissue abnormalities. No radiographic foreign body. Reading Location: [id number] CC: Dr. Richar Carrillo DO; Dr. Marty White MD ~ Web Assistant: Signed [facility]08-30-2022 NotePap Smear Specimen AdequacyAugust 2021 2:40pmComment.Satisfactory for evaluation. Endocervical component may not bedistinguished in cases of atrophy.[facility] INTER[facility] A#[id number]'S [facility] Work Phone: Comment on above:Satisfactory for evaluation. Endocervical component may not bedistinguished in cases of atrophy.03-30-2022 NotePap Smear Specimen AdequacyAugust 2021 2:40pmComment.Satisfactory for evaluation. Endocervical component may not bedistinguished in cases of atrophy. [facility] A#[id number]'S [facility] Work Phone: Comment on above:Satisfactory for evaluation. Endocervical component may not bedistinguished in cases of atrophy.03-30-2022 NotePap Smear Specimen AdequacyAugust 2021 2:40pmComment.Satisfactory for evaluation. Endocervical component may not bedistinguished in cases of atrophy. [facility] A#[id number]'S Hospital [facility] Work Phone: Comment on above:Satisfactory for evaluation. Endocervical component may not bedistinguished in cases of atrophy.03-30-2022 NotePap Smear Specimen AdequacyAugust 2021 1:40pmComment.Satisfactory for evaluation. Endocervical component may not bedistinguished in cases of atrophy. [facility] A#[id number]'S Hospital [facility] Work Phone: Comment on above:Satisfactory for evaluation. Endocervical component may not bedistinguished in cases of atrophy.Evaluation noteNo assessment information availableWFirelands Regional Medical Center Work Phone: Evaluation note* Diagnosis Onset Date Resolution Status Breast mass, right acute [facility] Work Phone: Hospital Discharge instructionsAdditional Instructions Follow-up with primary care physician. Tylenol and ibuprofen as needed for pain. [facility] Work Phone: Reason for referral (narrative)No reason for referral information availableWFirelands Regional Medical Center Work Phone: Chief Complaint and Reason for Visit Chief Complaint SCREENING, MENOPAUSL ABN SOY Chief Complaint SCREENING, MENOPAUSL ABN SOY R BREAST BIRADS 4 RIGHT BREAST MASS Reason for Visit Breast mass, right Chief Complaint SCREENING, MENOPAUSL ABN SOY R BREAST BIRADS 4 RIGHT BREAST MASS RT REPAIR ACHILLES TENDON,POSS DRAKE GASTROC. RT REPAIR ACHILLES TENDON,POSS DRAKE GASTROC. THYROID DISORDER Reason for Visit Breast mass, right Chief Complaint Admit Date fall, arm injury March 01, 2025 12: 18pm Family History No Family History Records Found Relationship Condition Age at Onset Recorded Date/T jade mother Leukemia Unknown High blood cholesterol Unknown father Diabetes mellitus Unknown Disorder of thyroid Unknown Advance Directives No Advanced Directives Records Found Advance Directive Response Recorded Date/ Time Name of Medical Power of Cloth Drier SPOUSE May 05, 2022 9:57am Living Will Yes May 05 9:57am Power of Cloth Drier Yes May 05 022 9:57am Advance Directive Response Recorded Date/ Time Do you have a Healthcare Power of Cloth Drier? No March 01, 2025 1:15pm Summary Purpose Additional Source Comments Goals (unrecognized section and content) Goals may be documented in a n alternate sectionGoals may be documented in an alternate sectionGoals may be documented in an alternate sectionGoals may be documented in an alternate sectionGoals may be documented in an alternate sectionGoals may be documented in an alternate sectionGoals may be documented in an alternate section Care Teams (unrecognized sec tion and content) Team Status: Active Member Role/Relationship Status Dates Dr. Marty White MD Primary Care Provider Acti ve Team Status: Inactive Member Role/Relationship Status Dates Dr. Richar Carrillo DO Emergency Provider Activ e Start: March 01, 2025 End: March 01, 2025 Dr. Marty White MD Primary Care Provider Acti ve Start: March 01, 2025 End: March 01, 2025 Team Status: Inactive Member Role/Relationship Status Dates Dr. Richar Carrillo DO Attending Provider Activ e Start: March 01, 2025 End: March 01, 2025 Dr. Richar Carrillo DO Emergency Provider Activ e Start: March 01, 2025 End: March 01, 2025 Dr. Marty White MD Primary Care Provider Acti ve Start: March 01, 2025 End: March 01, 2025 Team Status: Inactive Member Role/Relationship Status Dates Dr. Marty White MD Primary Care Provider Acti ve Start: March 18, 2025 End: March 18, 2025 Dr. Marty White MD Attending Provider Active Start: March 18, 2025 End: March 18, 2025 Team Status: Active Member Role/Relationship Status Dates Dr. Marty White MD Primary Care Provider Acti ve Start: March 19, 2025 Dr. Marty White MD Attending Provider Active Start: March 19, 2025 Dr. Marty White MD Referring Provider Active Start: March 19, 2025 Team Status: Inactive Member Role/Relationship Status Dates Dr. Marty White MD Primary Care Provider Acti ve Start: March 19, 2025 End: March 19, 2025 Dr. Marty White MD Attending Provider Active Start: March 19, 2025 End: March 19, 2025 Dr. Marty White MD Referring Provider Active Start: March 19, 2025 End: March 19, 2025 INFORMATION SOURCE (unrecogn ized section and content) DATE CREATED AUTHOR 04/23/2025 [facility] FOR RECORDS PERTAINING TO PATIENTS WHO ARE OR HAVE BEEN ENROLLED IN A CHEMICAL DEPENDENCY/SUBSTANCEABUSE PROGRAM, SOME INFORMATION MAY BE OMITTED. This clinical summary was aggregated from multiple sources. Caution should be exercised in using it in the provision of clinical care. This summary normalizes information from multiple sources, and as a consequence, information in this document may materially change the coding, format and clinical context of patient data. In addition, data may be omitted in some cases. CLINICAL DECISIONS SHOULD BE BASED ON THE PRIMARY CLINICAL RECORDS. [facility] [employer] [facility]. provides no warranty or guarantee of the accuracy or completeness of information in this document.
--- NOTE | 2025-04-24 07:29 | NM_ITS ---
PROCEDURE: THYROID UPTAKE SINGLE OR MULT REASON FOR EXAM: E04.9 - NONTOXIC GOITER, UNSPECIFIED TECHNIQUE: Procedure Code: [id number] Modality: NM Procedure: THYROID UPTAKE SINGLE OR MULT Imaging performed following intravenous technetium-99m sestamibi administration. Anterior imaging of the neck through 23.44 hours. RADIOPHARMACEUTICAL: Oral administration of 337 uCi iodine 123 sodium iodide. COMPARISON: Thyroid ultrasound 03/28/2024. FINDINGS: At the medial left thyroid or isthmus, a small focus of mildly increased uptake is seen. Thyroid gland otherwise appears homogeneous, no defect is noted. Thyroid uptake 3.8 hours of 8.1%, and at 23.44 hours of 25.6%. These values are within the normal range. NM/Thyroid Uptake Single or Mult IMPRESSION: 1. Normal thyroid uptake values. 2. Small focus of mildly increased uptake seen at the medial left thyroid or is thmus, but no area of decreased uptake is identified.. Reading Location: [id number]
== END | disposition home or self-care (01) ==
PROVIDERS: PCP Family Medicine; Referring Provider Family Medicine; Visit Provider Family Medicine
DX: E04.9 Nontoxic goiter, unspecified (principal)
CPT/HCPCS: 78012; A9516

== ENCOUNTER → 2025-04-30 | Outpatient (CLI) | payer MEDICARE, SELFPAY ==
--- NOTE | 2025-04-30 16:22 | BD_ITS ---
PROCEDURE: DEXA BONE DENSITY STUDY 04/30/2025 REASON FOR EXAM: F, age 65 y/o . Postmenopausal screening. TECHNIQUE: Procedure Code: BDDBD Modality: DX Procedure: DEXA BONE DENSITY STUDY COMPARISON: 2011 FINDINGS: BMD and T-SCORES Lumbar spine: 0.922 g/cm2, T-score -0.9 Levels: L1 through L4 Change from prior: Decrease of 2.6%. Left femoral neck: 0.775 g/cm2, T-score -0.7 Femoral neck comparison data not recommended for monitoring change. Prior T-score Left total hip: 0.849 g/cm2, T-score -0.8 Change from prior: Increase of 0.2%. Right femoral neck: 0.781 g/cm2, T-score -0.6 Femoral neck comparison data not recommended for monitoring change. Prior T-score Right total hip: 0.849 g/cm2, T-score -0.8 Change from prior: Decrease of 2.8%. The World Health Organization has defined the following categories based on bone density: Normal bone density: T-score equal to or greater than -1.0 Osteopenia: T-score between -1.0 and -2.5 Osteoporosis: T-score equal to or less than -2.5 FRAX (or Comparable) Fracture Risk Assessment: 10 Year Probability of Fracture: Major Osteoporotic Fracture: 7.5% Hip Fracture: 0.5% (Note: FRAX is not to be reported in setting of normal range bone density, osteoporosis on DEXA, known history of osteoporosis, prior osteoporotic hip or vertebral fracture, or for any patient undergoing pharmacological treatment for bone loss.) The National Osteoporosis Foundation (NOF) recommends pharmacological treatment for patients with a FRAX 10-year risk of 3% or higher for a hip fracture, or 20% or higher for a major osteoporotic fracture, to prevent osteoporosis and reduce fracture risk. The patient does not meet the pharmacological treatment recommendations for prevention of osteoporosis. BD/Dexa Bone Density Study IMPRESSION: NORMAL T-SCORES. Recommend follow-up as clinically warranted. Reading Location: [id number]
--- NOTE | 2025-04-30 17:00 | BI_ITS ---
EXAM: SCRN MAMM (CAD)W/SHELBIE BILAT DATE: 04/30/2025 CLINICAL HISTORY: F, Age 65 y/o , SCREENING FOR BREAST CANCER Routine screening TECHNIQUE: Procedure Code: [id number] Modality: MG Procedure: SCRN MAMM (CAD)W/SHELBIE BILAT COMPARISON: Prior exam(s) dated 03/20/2024. FINDINGS: TISSUE DENSITY: The breasts are heterogeneously dense, which may obscure small masses. Bilateral Breast Mammographic Findings: No significant masses, calcifications or other abnormalities are identified. Stable post biopsy changes in both breasts. No interval change BI/SCRN MAMM (CAD)W/SHELBIE BILAT IMPRESSION: Stable screening mammogram, no interval change OVERALL FINAL ASSESSMENT BI-RADS 2: BENIGN RECOMMENDATION: Routine annual follow-up in 1 Year Additional Recommendation none A letter with findings and recommendations will be mailed to the patient. Reading Location: [id number]
== END | disposition home or self-care (01) ==
LOC: OPBD 16:16
PROVIDERS: PCP Family Medicine
DX: Z13.820 Encounter for screening for osteoporosis (principal); Z78.0 Asymptomatic menopausal state; Z12.31 Encounter for screening mammogram for malignant neoplasm of breast
CPT/HCPCS: 77063; 77067; 77080

== ENCOUNTER → 2025-06-21 | Outpatient (CLI) | payer MEDICARE, SELFPAY ==
[2025-06-21 12:41] LABS: Free T3 4.3 pg/mL (2.18-3.98)
== END | disposition home or self-care (01) ==
LOC: MFPLAB 10:14
PROVIDERS: PCP Family Medicine; Visit Provider Family Medicine
DX: E05.90 Thyrotoxicosis, unspecified without thyrotoxic crisis or storm (principal)
CPT/HCPCS: 36415; 84439; 84443; 84481

== ENCOUNTER → 2025-07-01 | Outpatient (CLI) | payer MEDICARE, SELFPAY ==
--- NOTE | 2025-07-01 16:52 | US_ITS ---
PROCEDURE: THYROID 07/01/2025 REASON FOR EXAM: HYPERTHYROIDISM TECHNIQUE: Procedure Code: USTHY Modality: US Procedure: THYROID COMPARISON: 28 March 2024. FINDINGS: Transcutaneous 2-D grayscale and color Doppler ultrasound of the thyroid gland was performed. MEASUREMENTS: Right lobe: 6 x 3.7 x 3 cm. Left lobe: 11.8 x 4.8 x 4.7 cm. Isthmus: 4.4 cm. RIGHT SIDE: Diffusely heterogeneous echotexture. No discrete lesion. LEFT SIDE: Diffusely heterogeneous echotexture. No discrete lesion. ISTHMUS: No evidence of nodule or mass. Increased vascularity without microcalcification. No enlarged lymph nodes within the visualized neck. US/Thyroid IMPRESSION: 1. Diffusely heterogenous thyroid with increased vascularity which can be seen with thyroiditis (reactive versus autoimmune). 2. Thyromegaly. Reading Location: [id number]
--- OUTSIDE RECORDS SUMMARY | 2025-07-01 20:09 | XMS RPT_ITS | CCD ---
Author Organization [facility] CliniSyar Care Team Providers Care Geoduck Diver Name Role Phone Dr. Haley Wellington Primary Care Provider [phone] Haley Wellington Referring Provider [phone] Corine Adhikari Attending Provider Dr. Haley Wellington Primary Care Provider Dr. Haley Wellington Referring Provider [phone] Corine Adhikari Attending Provider Dr. Kalee Rice Attending Provider Dr. Moncho Arrieta Referring Provider Lorena BECK, Dr. Mcqueen Emergency Provider Dr. Marty White MD Primary Care Provider Lorena BECK, Dr. Mcqueen Attending Provider Dr. Marty White MD Attending Provider Dr. Marty White MD Referring Provider Lorena BECK, Dr. Mcqueen Attending Physician Dr. Richar Carrillo DO Emergency Departmen t Physician Dr. Marty White MD Primary Care Physicia n Dr. Marty White MD Attending Physician McMorrow STOCK SUPERVISOR-CDiaz Attending Physician Olindaorrow STOCK SUPERVISOR-CDiaz Referring Provider Marty White Referring Unavailable Marty White Attending Unavailable Marty White Primary Care Unavailable Marty White Attending Unavailable Marty White Primary Care Unavailable Marty White Primary Care Unavailable Richar Carrillo Attending Unavailabl e Marty White Referring Unavailable Marty White Attending Unavailable Marty White Primary Care Unavailable Marty White Primary Care Unavailable Olindaorrow Diaz RODRIGUEZ Referring Unavailable Olindaorrow STOCK SUPERVISORDiaz Attending Unavailable Problems Problem Classification Problem Date Documented Da te Episodic/Chronic Nonmalignant breast conditions (11 sources) Breast lump; Translations: [Unspecified lump in the right breast, unspecified quadrant] Episodic Other injuries and conditions due to external causes (1 source) Unspecified injury of left elbow, initial encounter; Translations: [Unspecified injury of left elbow, initial encounter] Onset: 03-09-2025 Episodic Other screening for suspected conditions (not mental disorders or infectious disease) (1 source) Encounter for screening for osteoporosis; Translations: [Encounter for screening for osteoporosis] Onset: 05-06-2025 Episodic Superficial injury; contusion (5 sources) Contusion of left elbow; Translations: [Contusion of left elbow, initial encounter] 03-01-2025 Episodic Thyroid disorders (1 source) Nontoxic goiter, unspecified; Translations: [Nontoxic goiter, unspecified] Onset: 04-30-2025 Chronic Thyroid disorders (1 source) Disorder of thyroid, unspecified; Translations: [Disorder of thyroid, unspecified] Onset: 03-25-2025 Episodic Results Test Name Value Interpretation Reference Range Facility Bone density reportOrdered B y: Darrell Hunt on 05-01-2025 Study report Skeletal system DXA [facility] Imaging Services [address] [place] [address] Dexa Bone Density Study MR#: [id number] Acct: [id number] Name: DIOMEDES CALVO PIERRE Rep #: [id number] : 1960 F 65 From: Renetta Hunt MD PCP: Dr. Marty White MD Status: REG CLI Study:Dexa Bone Density Study Date of Exam: 04/30/25 Exam# [id number] Ordering Dr: Diaz Menon STOCK SUPERVISOR STOCK SUPERVISOR-C PROCEDURE: DEXA BONE DENSITY STUDY 04/30/2025 REASON FOR EXAM: F, age 65 y/o . Postmenopausal screening. TECHNIQUE: Procedure Code: BDDBD Modality: DX Procedure: DEXA BONE DENSITY STUDY COMPARISON: 2011 FINDINGS: BMD and T-SCORES Lumbar spine: 0.922 g/cm2, T-score -0.9 Levels: L1 through L4 Change from prior: Decrease of 2.6%. Left femoral neck: 0.775 g/cm2, T-score -0.7 Femoral neck comparison data not recommended for monitoring change. Prior T-score Left total hip: 0.849 g/cm2, T-score -0.8 Change from prior: Increase of 0.2%. Right femoral neck: 0.781 g/cm2, T-score -0.6 Femoral neck comparison data not recommended for monitoring change. Prior T-score Right total hip: 0.849 g/cm2, T-score -0.8 Change from prior: Decrease of 2.8%. The World Health Organization has defined the following categories based on bonedensity: Normal bone density: T-score equal to or greater than -1.0 Osteopenia: T-score between -1.0 and -2.5 Osteoporosis: T-score equal to or less than -2.5 FRAX (or Comparable) Fracture Risk Assessment: 10 Year Probability of Fracture: Major Osteoporotic Fracture: 7.5% Hip Fracture: 0.5% (Note: FRAX is not to be reported in setting of normal range bone density, osteoporosis on DEXA, known history of osteoporosis, prior osteoporotic hip or vertebral fracture, or for any patient undergoing pharmacological treatment for bone loss.) The National Osteoporosis Foundation (NOF) recommends pharmacological treatment for patients with a FRAX 10-year risk of 3% or higher for a hip fracture, or 20% or higher for a major osteoporotic fracture, to prevent osteoporosis and reduce fracture risk. The patient does not meet the pharmacological treatment recommendations for prevention of osteoporosis. BD/Dexa Bone Density Study IMPRESSION: NORMAL T-SCORES. Recommend follow-up as clinically warranted. Reading Location: [id number] CC: Diaz LÓPEZ McMorrow; Dr. Marty White MD ~ Embroidery Patternmaker: Signed [facility] Breast imaging reportOrdered By: Darrell Hunt on 05-01-2025 Study report [facility] Imaging Services [address] [place] [address] SCRN MAMM (CAD)W/SHELBIE BILAT MR#: [id number] Acct: [id number] Name: DIOMEDES CALVO [facility] Rep #: [id number] : 1960 F 65 From: Renetta Hunt MD PCP: Dr. Marty White MD Status: REG CLI Study:SCRN MAMM (CAD)W/SHELBIE BILAT Date of Exa m: 04/30/25 Exam# [id number] Ordering Dr: Diaz Menon NP STOCK SUPERVISOR-C EXAM: SCRN MAMM (CAD)W/SHELBIE BILAT DATE: 04/30/2025 CLINICAL HISTORY: F, Age 65 y/o , SCREENING FOR BREAST CANCER Routine screening TECHNIQUE: Procedure Code: BISMWCADBTOM Modality: MG Procedure: SCRN MAMM (CAD)W/SHELBIE BILAT COMPARISON: Prior exam(s) dated 03/20/2024. FINDINGS: TISSUE DENSITY: The breasts are heterogeneously dense, which may obscure small masses. Bilateral Breast Mammographic Findings: No significant masses, calcifications or other abnormalities are identified. Stable post biopsy changes in both breasts. No interval change BI/SCRN MAMM (CAD)W/SHELBIE BILAT IMPRESSION: Stable screening mammogram, no interval change OVERALL FINAL ASSESSMENT BI-RADS 2: BENIGN RECOMMENDATION: Routine annual follow-up in 1 Year Additional Recommendation none A letter with findings and recommendations will be mailed to the patient. Reading Location: [id number] CC: Diaz Menon; Dr. Marty White MD ~ Embroidery Patternmaker: Signed [facility] Dexa Bone Density Studyon Dexa Bone Density Study [facility] Imaging Services [address] [place], [place] [id number] Dexa Bone Density Study MR#: [id number] Acct: [id number] Name: DIOMEDES CALVO Rep #: [id number] : 1960 F 65 From: Darrell Hunt MD PCP: Dr. Marty White MD Status: REG CLI Study: Dexa Bone Density Study Date of Exam: 04/30/25 Exam# [id number] Ordering Dr: Diaz Menon NP STOCK SUPERVISOR -C PROCEDURE: DEXA BONE DENSITY STUDY 04/30/2025 REASON FOR EXAM: F, age 65 y/o . Postmenopausal screening. TECHNIQUE: Procedure Code: BDDBD Modality: DX Procedure: DEXA BONE DENSITY STUDY COMPARISON: 2011 FINDINGS: BMD and T-SCORES Lumbar spine: 0.922 g/cm2, T-score -0.9 Levels: L1 through L4 Change from prior: Decrease of 2.6%. Left femoral neck: 0.775 g/cm2, T-score -0.7 Femoral neck comparison data not recommended for monitoring change. Prior T-score Left total hip: 0.849 g/cm2, T-score -0.8 Change from prior: Increase of 0.2%. Right femoral neck: 0.781 g/cm2, T-score -0.6 Femoral neck comparison data not recommended for monitoring change. Prior T-score Right total hip: 0.849 g/cm2, T-score -0.8 Change from prior: Decrease of 2.8%. The World Health Organization has defined the following categories based on bone density: Normal bone density: T-score equal to or greater than -1.0 Osteopenia: T-score between -1.0 and -2.5 Osteoporosis: T-score equal to or less than -2.5 FRAX (or Comparable) Fracture Risk Assessment: 10 Year Probability of Fracture: Major Osteoporotic Fracture: 7.5% Hip Fracture: 0.5% (Note: FRAX is not to be reported in setting of normal range bone density, osteoporosis on DEXA, known history of osteoporosis, prior osteoporotic hip or vertebral fracture, or for any patient undergoing pharmacological treatment for bone loss.) The National Osteoporosis Foundation (NOF) recommends pharmacological treatment for patients with a FRAX 10-year risk of 3% or higher for a hip fracture, or 20% or higher for a major osteoporotic fracture, to prevent osteoporosis and reduce fracture risk. The patient does not meet the pharmacological treatment recommendations for prevention of osteoporosis. BD/Dexa Bone Density Study IMPRESSION: NORMAL T-SCORES. Recommend follow-up as clinically warranted. Reading Location: [id number] CC: Diaz Menon; Dr. Marty White MD Embroidery Patternmaker: Signed Normal [facility] SCRN MAMM (CAD)W/SHELBIE BILATo n 04-30-2025 SCRN MAMM (CAD)W/SHELBIE BILAT [facility] Imaging Services [address] [place], [place] [id number] SCRN MAMM (CAD)W/SHELBIE BILAT MR#: [id number] Acct: [id number] Name: DIOMEDES CALVO PIERRE Rep #: [id number] : 1960 F 65 From: Darrell Hunt MD PCP: Dr. Marty White MD Status: REG CLI Study: SCRN MAMM (CAD)W/SHELBIE BILAT Date of Exam: 04/03 Exam# [id number] Ordering Dr: Diaz Menon NP STOCK SUPERVISOR -C EXAM: SCRN MAMM (CAD)W/SHELBIE BILAT DATE: 04/30/2025 CLINICAL HISTORY: F, Age 65 y/o , SCREENING FOR BREAST CANCER Routine screening TECHNIQUE: Procedure Code: BISMWCADBTOM Modality: MG Procedure: SCRN MAMM (CAD)W/SHELBIE BILAT COMPARISON: Prior exam(s) dated 03/20/2024. FINDINGS: TISSUE DENSITY: The breasts are heterogeneously dense, which may obscure small masses. Bilateral Breast Mammographic Findings: No significant masses, calcifications or other abnormalities are identified. Stable post biopsy changes in both breasts. No interval change BI/SCRN MAMM (CAD)W/SHELBIE BILAT IMPRESSION: Stable screening mammogram, no interval change OVERALL FINAL ASSESSMENT BI-RADS 2: BENIGN RECOMMENDATION: Routine annual follow-up in 1 Year Additional Recommendation none A letter with findings and recommendations will be mailed to the patient. Reading Location: [facility] CC: Diaz LÓPEZ McMorrow; Dr. Marty White MD Embroidery Patternmaker: Signed Normal [facility] Thyroid Uptake Single or Mul ton 04-24-2025 Thyroid Uptake Single or Mult [facility] Imaging Services [address] [place] [address] Thyroid Uptake Single or Mult MR#: [id number] Acct: [id number] Name: DIOMEDES CALVO PIERRE Rep #: [id number] : 1960 F 65 From: Stevenson Chopra PCP: Dr. Marty White MD Status: REG CLI Study: Thyroid Uptake Single or Mult Date of Exam: 0 04/24/25 Exam# [id number] Ordering Dr: Marty White PROCEDURE: THYROID UPTAKE SINGLE OR MULT REASON FOR EXAM: E04.9 - NONTOXIC GOITER, UNSPECIFIED TECHNIQUE: Procedure Code: NMTHYUPTAKE Modality: NM Procedure: THYROID UPTAKE SINGLE OR MULT Imaging performed following intravenous technetium-99m sestamibi administration. Anterior imaging of the neck through 23.44 hours. RADIOPHARMACEUTICAL: Oral administration of 337 uCi iodine 123 sodium iodide. COMPARISON: Thyroid ultrasound 03/28/2024. FINDINGS: At the medial left thyroid or isthmus, a small focus of mildly increased uptake is seen. Thyroid gland otherwise appears homogeneous, no defect is noted. Thyroid uptake 3.8 hours of 8.1%, and at 23.44 hours of 25.6%. These values are within the normal range. NM/Thyroid Uptake Single or Mult IMPRESSION: 1. Normal thyroid uptake values. 2. Small focus of mildly increased uptake seen at the medial left thyroid or isthmus, but no area of decreased uptake is identified.. Reading Location: [address] CC: Dr. Marty White MD Embroidery Patternmaker: Signed Normal [facility] L801.2650on 03-21-2025 T3UP 28 Normal 24-39 [facility] Comment on above: Performed By: #### L 3300.6900, L801.6936 #### [facility] Laboratory [address] [place], [address] Thyroid Peroxidase ABon 03-02 THYR PEROX AB < 9 Normal 0-34 [facility] Comment on above: Result Comment: Perf ormed at: - [facility] [address] [place], [place] [id number] Management Developer: Teo Harden PhD, Phone: [phone] Performed By: #### L 3300.6900, L801.6982 #### [facility] Laboratory [address] [place], [address] Free T3on 03-19-2025 Free T3 [Mass/Vol] 3.8 pg/mL Normal 2.18-3.98 [facility] Comment on above: Order Comment: DANAE Dumont ADD T3F TO BLOOD DRAWN 03/18/25 PER Order Date: 03/18/25 Order Info: [id number] - BMP Order Info: [id number] - LIPID Order Info: [id number] - TSH Order Info: [id number] - T4F Performed By: #### L 501.24356 #### [facility] Laboratory [address] [facility] [address] [place], [place], [id number] Serum or plasma thyroperoxid ase antibody assay (units/volume)Ordered By: Marty White on 03-19-2025 TPO Ab Qn [IU]/mL 0-34 [facility] Comment on above: Performed at: CB - [facility] [id number] [place], [place] [id number] Director: Teo Harden PhD, Phone: [phone] T3 RUOrdered By: Marty White on 03-19-2025 T3RU 28 % 24-39 [facility] Anion gap in Serum or Plasma Ordered By: Marty White on 03-18-2025 Anion gap [Moles/Vol] 13 mmol/L 5-15 [facility] BUN/creatinine ratioOrdered By: Marty White on 03-18-2025 Urea nitrogen/Creatinine [Mass ratio] 19.6 mg/mg 10- [facility] Basic Metabolic Profile (BMP )on 03-18-2025 BUN/CRE 19.6 RATIO Normal - [facility] Comment on above: Order Comment: Order Date: 03/18/25Order Info: [id number] - BMPOrder Info: [id number] - LIPIDOrder Info: 3 - TSHOrder Info: 7 - T4F Performed By: #### L 3300.6900, L801.2650 #### [facility] Laboratory [address] [place], [address] Calcium [Mass/Vol] 9.7 mg/dL Normal 7.6-11.0 [facility] Comment on above: Order Comment: Order Date: 03/18/25Order Info: [id number] - BMPOrder Info: - LIPIDOrder Info: [id number] - TSHOrder Info: [id number] - T4F Performed By: #### L 3300.6900, L801.2650 #### [facility] Laboratory [address] [place], [address] Chloride [Moles/Vol] 102 mmol/L Normal 98-108 [facility] Comment on above: Order Comment: Order Date: 03/18/25Order Info: [id number] - BMPOrder Info: [id number] - LIPIDOrder Info: 3 - TSHOrder Info: 7 - T4F Performed By: #### L 3300.6900, L801.2650 #### [facility] Laboratory [address] [place], [address] CO2 [Moles/Vol] 23.9 mmol/L Normal 21.0-32.0 [facility] Comment on above: Order Comment: Order Date: 03/18/25Order Info: [id number] - BMPOrder Info: [id number] - LIPIDOrder Info: [id number] - TSHOrder Info: [id number] - T4F Performed By: #### L 3300.6900, L801.2650 #### [facility] Laboratory [address] [place], [address] Creatinine [Mass/Vol] 0.74 mg/dL Normal 0.70-1.20 [facility] Comment on above: Order Comment: Order Date: 03/18/25Order Info: [id number] - BMPOrder Info: [id number] - LIPIDOrder Info: 3 - TSHOrder Info: 7 - T4F Performed By: #### L 3300.6900, L801.2650 #### [facility] Laboratory [address] [place], [address] GAP 13 Normal 5-15 [facility] Comment on above: Order Comment: Order Date: 03/18/25Order Info: [id number] - BMPOrder Info: [id number] - LIPIDOrder Info: 3 - TSHOrder Info: 7 - T4F Performed By: #### L 3300.6900, L801.2650 #### [facility] Laboratory [address] [place], [address] GFR/1.73 sq M.predicted among non-blacks MDRD (S/P/Bld) [Vol rate/Area] 89 mL/min/{1.73_m2} Normal >60 [facility] Comment on above: Order Comment: Order Date: 03/18/25Order Info: [id number] - BMPOrder Info: [id number] - LIPIDOrder Info: 3 - TSHOrder Info: 7 - T4F Result Comment: mL/m in/1.73m2 CKD-EPI Creatinine Equation (2020) Performed By: #### L 3300.6900, L801.2650 #### [facility] Laboratory [address] [place], [address] Glucose [Mass/Vol] 95 mg/dL Normal 70-99 [facility] Comment on above: Order Comment: Order Date: 03/18/25Order Info: [id number] - BMPOrder Info: [id number] - LIPIDOrder Info: 3 - TSHOrder Info: [id number] - T4F Performed By: #### L 3300.6900, L801.2650 #### [facility] Laboratory [address] [place], [address] Potassium [Moles/Vol] 4.2 mmol/L Normal 3.3-5.1 [facility] Comment on above: Order Comment: Order Date: 03/18/25Order Info: 666- - BMPOrder Info: [id number] - LIPIDOrder Info: [id number] - TSHOrder Info: 3024-7 - T4F Performed By: #### L 3300.6900, L801.2650 #### [facility] Laboratory [address] [place], [address] Sodium [Moles/Vol] 139 mmol/L Normal 133-145 [facility] Comment on above: Order Comment: Order Date: 03/18/25Order Info: 666- - BMPOrder Info: [id number] - LIPIDOrder Info: 6-3 - TSHOrder Info: 3024-7 - T4F Performed By: #### L 3300.6900, L801.2650 #### [facility] Laboratory [address] [place], [address] Urea nitrogen [Mass/Vol] 15 mg/dL Normal 4-19 [facility] Comment on above: Order Comment: Order Date: 03/18/25Order Info: [id number] - BMPOrder Info: [id number] - LIPIDOrder Info: [id number] - TSHOrder Info: 3024-7 - T4F Performed By: #### L 3300.6900, L801.2650 #### [facility] [address] [place], [address] CBC-Complete Blood Cnt No Di ffon 03-18-2025 Erythrocyte distribution width (RBC) [Ratio] 12.5 % Normal 11.6-14.6 [facility] Comment on above: Order Comment: Order Date: 03/18/25Order Info: [id number] - CBC Performed By: #### L 3300.6900, L801.2650 #### [facility] Laboratory [address] [place], [address] Hematocrit (Bld) [Volume fraction] 40.1 % Normal 37-47 [facility] Comment on above: Order Comment: Order Date: 03/18/25Order Info: [id number] - CBC Performed By: #### L 3300.6900, L801.2650 #### [facility] Laboratory [address] [place], [address] Hemoglobin (Bld) [Mass/Vol] 13.3 g/dL Normal 12.0-15.0 [facility] Comment on above: Order Comment: Order Date: 03/18/25Order Info: [id number] - CBC Performed By: #### L 3300.6900, L801.2650 #### [facility] Laboratory [address] [place], [address] MCH (RBC) [Entitic mass] 29.4 pg Normal 27.0-32.0 [facility] Comment on above: Order Comment: Order Date: 03/18/25Order Info: [id number] - CBC Performed By: #### L 3300.6900, L801.2650 #### [facility] Laboratory [address] [place], [address] MCHC (RBC) [Mass/Vol] 33.2 g/dL Normal 32-36 [facility] Comment on above: Order Comment: Order Date: 03/18/25Order Info: [id number] - CBC Performed By: #### L 3300.6900, L801.2650 #### [facility] [address] [place], [address] MCV (RBC) [Entitic vol] 88.7 fL Normal 81-99 [facility] Comment on above: Order Comment: Order Date: 03/18/25Order Info: [id number] - CBC Performed By: #### L 3300.6900, L801.2650 #### [facility] Laboratory [address] [place], [address] Platelet mean volume (Bld) [Entitic vol] 10.0 fL Normal 6.2-12.0 [facility] Comment on above: Order Comment: Order Date: 03/18/25Order Info: [id number] - CBC Performed By: #### L 3300.6900, L801.2650 #### [facility] Laboratory [address] [place], [address] Platelets (Bld) [#/Vol] 242 10*3/uL Normal 150-450 [facility] Comment on above: Order Comment: Order Date: 03/18/25Order Info: [id number] - CBC Performed By: #### L 3300.6900, L801.2650 #### [facility] Laboratory [address] [place], [address] RBC (Bld) [#/Vol] 4.52 10*6/uL Normal 4.2-5.4 [facility] Comment on above: Order Comment: Order Date: 03/18/25Order Info: [id number] - CBC Performed By: #### L 3300.6900, L801.2650 #### [facility] [address] [place], [address] RDW SD 40.7 fl Normal 35.1-43.9 [facility] Comment on above: Order Comment: Order Date: 03/18/25Order Info: [id number] - CBC Performed By: #### L 3300.6900, L801.2650 #### [facility] [address] [place], [address] WBC (Bld) [#/Vol] 4.1 10*3/uL Low 4.4-11.0 [facility] Comment on above: Order Comment: Order Date: 03/18/25Order Info: [id number] - CBC Performed By: #### L 3300.6900, L801.2650 #### [facility] [address] [place], [address] Calculated very low density lipoprotein (VLDL) cholesterol measurementOrdered By: Marty White on 03-18-2025 Calculated very low density lipoprotein (VLDL) cholesterol measurement 19 mg/dL 5-40 [facility] Carbon dioxide, total [Moles /volume] in Central venous bloodOrdered By: Marty White on 03-18-2025 CO2 [Moles/Vol] 23.9 mmol/L 21.0-32.0 [facility] Chloride assayOrdered By: Kalyn White on 03-18-2025 Chloride [Moles/Vol] 102 mmol/L 98-108 [facility] Erythrocyte distribution wid th ratioOrdered By: Marty White on 03-18-2025 Erythrocyte distribution width (RBC) [Ratio] 12.5 % 11.6-14.6 [facility] Erythrocyte distribution wid th standard deviationOrdered By: Marty White on 03-18-2025 Erythrocyte distribution width (RBC) [Ratio] 40.7 fl 35.1-43.9 [facility] Free A8Cqtcvof By: Rivera White on 03-18-2025 Free T3 [Mass/Vol] 3.8 pg/mL 2.18-3.98 [facility] Glomerular filtration rate ( GFR) estimation/1.73 sq m using serum, plasma, or whole bOrdered By: Marty White on 03-18-2025 GFR/1.73 sq M.predicted among non-blacks MDRD (S/P/Bld) [Vol rate/Area] 89 mL/min/{1.73_m2} >60 [facility] Comment on above: mL/min/1.73m2 CKD-EP I Creatinine Equation (2020) Hematocrit Auto (Bld) [Volum e fraction]Ordered By: Marty White on 03-18-2025 Hematocrit (Bld) [Volume fraction] 40.1 % 37-47 [facility] Hemoglobin measurementOrdere d By: Marty White on 03-18-2025 Hemoglobin (Bld) [Mass/Vol] 13.3 g/dL 12.0-15.0 [facility] LDL calc ser/plasOrdered By: Marty White on 03-18-2025 Cholesterol in LDL [Mass/Vol] 91 mg/dL [facility] Comment on above: Olhyydjcgy=419-723 m g/dL & Higher Btwe=373 mg/dL or greaterFriedwald Equation for LDL-C Lipid Profileon 03-18-2025 CHOL:HDL 3.10 Normal [facility] Comment on above: Order Comment: Order Date: 03/18/25Order Info: 666- - BMPOrder Info: [id number] - LIPIDOrder Info: 3 - TSHOrder Info: [id number] - T4F Performed By: #### L 3300.6900, L801.2650 #### [facility] Laboratory [address] [place], [place], [address] Cholesterol [Mass/Vol] 162 mg/dL Normal <=200 [facility] Comment on above: Order Comment: Order Date: 03/18/25Order Info: [id number] - BMPOrder Info: [id number] - LIPIDOrder Info: 3 - TSHOrder Info: [id number] - T4F Result Comment: Chol esterol level, Desirable <200 mg/dL Borderline high cholesterol 200-239 mg/dL High cholesterol >=240 mg/dL Recommendations of the NCEP Adult Treatment Panel for the following risk-cutoff thresholds for the [place] population. Performed By: #### L 3300.6900, L801.2650 #### [facility] [address] [place], [place], [id number] Cholesterol in HDL [Mass/Vol] 52 mg/dL Normal [facility] Comment on above: Order Comment: Order Date: 03/18/25Order Info: [id number] - BMPOrder Info: [id number] - LIPIDOrder Info: [id number] - TSHOrder Info: [id number] - T4F Result Comment: Aruna onal Cholesterol Education Program (NCEP) guidelines: <40 mg/dL: Low HDL-cholesterol (major risk factor for CHD) >= 60 mg/dL: High HDL-cholesterol (negative risk factor for CHD) HDL-cholesterol is affected by a number of factors, e.g. smoking, exercise, hormones, sex and age. Performed By: #### L 3300.6900, L801.2650 #### [facility] [address] [place], [address] Cholesterol in LDL [Mass/Vol] 91 mg/dL Normal [facility] Comment on above: Order Comment: Order Date: 03/18/25Order Info: [id number] - BMPOrder Info: [id number] - LIPIDOrder Info: [id number] - TSHOrder Info: [id number] - T4F Result Comment: Bord ftpnsl=425-787 mg/dL Higher Yaaf=026 mg/dL or greater Friedwald Equation for LDL-C Performed By: #### L 3300.6900, L801.2650 #### [facility] [address] [place], [address] Cholesterol in VLDL [Mass/Vol] 19 mg/dL Normal 5-40 [facility] Comment on above: Order Comment: Order Date: 03/18/25Order Info: [id number] - BMPOrder Info: [id number] - LIPIDOrder Info: [id number] - TSHOrder Info: [id number] - T4F Performed By: #### L 3300.6900, L801.2650 #### [facility] [address] [place], [address] Triglyceride [Mass/Vol] 95 mg/dL Normal [facility] Comment on above: Order Comment: Order Date: 03/18/25Order Info: [id number] - BMPOrder Info: [id number] - LIPIDOrder Info: [id number] - TSHOrder Info: [id number] - T4F Result Comment: The drugs N-Acetylcysteine and Metamizole may falsely depress this assay. Normal range: <150 mg/dL Borderline High: 150-199 mg/dL High: 200-499 mg/dL Very High: >500 mg/dL Performed By: #### L 3300.6900, L801.2650 #### [facility] [address] [place], [address] MCV (mean corpuscular volume ) determinationOrdered By: Marty White on 03-18-2025 MCV (RBC) [Entitic vol] 88.7 fL 81-99 [facility] Mean corpuscular hemoglobin (MCH) determinationOrdered By: Marty White on 03-18-2025 MCH (RBC) [Entitic mass] 29.4 pg 27.0-32.0 [facility] Mean corpuscular hemoglobin concentration (MCHC) determinationOrdered By: Marty White on 03-18-2025 MCHC (RBC) [Mass/Vol] 33.2 g/dL 32-36 [facility] Mean platelet volume determi nationOrdered By: Marty White on 03-18-2025 Platelet mean volume (Bld) [Entitic vol] 10.0 fL 6.2-12.0 [facility] Platelet countOrdered By: Kalyn White on 03-18-2025 Platelets (Bld) [#/Vol] 242 10*3/uL 150-450 [facility] Potassium measurement (mass/ volume)Ordered By: Marty White on 03-18-2025 Potassium (Unsp spec) [Mass/Vol] 4.2 mmol/L 3.3-5.1 [facility] RBC Auto (Bld) [#/Vol]Ordere d By: Marty White on 03-18-2025 RBC (Bld) [#/Vol] 4.52 10*6/uL 4.2-5.4 [facility] Screening total cholesterol/ high density lipoprotein (HDL) cholesterol ratioOrdered By: Marty White on 03-18-2025 Cholesterol.total/Choles terol in HDL [Mass ratio] 3.10 {ratio} [facility] Serum creatinine measurement (mass/volume)Ordered By: Marty White on 03-18-2025 Creatinine [Mass/Vol] 0.74 mg/dL 0.70-1.20 [facility] Serum glucose measurement (m ass/volume)Ordered By: Marty White on 03-18-2025 Glucose [Mass/Vol] 95 mg/dL 70-99 [facility] Serum or plasma calcium tony urement (mass/volume)Ordered By: Marty White on 03-18-2025 Calcium [Mass/Vol] 9.7 mg/dL 7.6-11.0 [facility] Serum or plasma cholesterol in HDL measurement (mass/volume)Ordered By: Marty White on 03-18-2025 Cholesterol in HDL [Mass/Vol] 52 mg/dL >40 [facility] Comment on above: National Cholesterol Education Program (NCEP) guidelines:<40 mg/dL: Low HDL-cholesterol (major risk factor for CHD)>= 60 mg/dL: High HDL-cholesterol (negative risk factor for CHD)HDL-cholesterol is affected by a number of factors, e.g. smoking, exercise, hormones, sex and age. Serum or plasma cholesterol measurement (mass/volume)Ordered By: Marty White on 03-18-2025 Cholesterol [Mass/Vol] 162 mg/dL <201 [facility] Comment on above: Cholesterol level, D esirable <200 mg/dLBorderline high cholesterol 200-239 mg/dLHigh cholesterol >=240 mg/dLRecommendations of the NCEP Adult Treatment Panel for the following risk-cutoff thresholds for the [place] population. Serum or plasma urea nitroge n measurement (mass/volume)Ordered By: Marty White on 03-18-2025 Urea nitrogen [Mass/Vol] 15 mg/dL 4-19 [facility] Sodium levelOrdered By: Marci White on 03-18-2025 Sodium [Moles/Vol] 139 mmol/L 133-145 [facility] T4 Free Directon 03-18-2025 T4 FREE DIRECT 1.20 ng/dL Normal 0.76-1.46 [facility] Comment on above: Order Comment: Order Date: 03/18/25Order Info: [id number] - BMPOrder Info: [id number] - LIPIDOrder Info: [id number] - TSHOrder Info: [id number] - T4F Performed By: #### L 3300.6900, L801.2650 #### [facility] [address] [place], [place], [id number] T4 freeOrdered By: Rivera er Christopher on 03-18-2025 Free T4 [Mass/Vol] 1.20 ng/dL 0.76-1.46 [facility] TSH DL <= 0.005 mIU/L QnOrde red By: Marty White on 03-18-2025 TSH Qn 0.099 uIU/mL Low 0.300-4.200 [facility] Thyroid Stim Hormone (TSH)on 03-18-2025 TSH 0.099 uIU/mL Low 0.300-4.200 [facility] Comment on above: Order Comment: Order Date: 03/18/25Order Info: [id number] - BMPOrder Info: [id number] - LIPIDOrder Info: [id number] - TSHOrder Info: [id number] - T4F Performed By: #### L 3300.6900, L801.2650 #### [facility] [address] [place], [place], [id number] Triglycerides measurementOrd ered By: Marty White on 03-18-2025 Triglyceride [Mass/Vol] 95 mg/dL <199 [facility] Comment on above: The drugs N-Acetylcy steine and Metamizole may falsely depress this assay. Normal range: <150 mg/dLBorderline High: 150-199 mg/dLHigh: 200-499 mg/dLVery High: >500 mg/dL White blood cell (WBC) count Ordered By: Marty White on 03-18-2025 WBC (Bld) [#/Vol] 4.1 10*3/uL Low 4.4-11.0 [facility] Elbow min 3 Viewson 03-01-20 25 Elbow min 3 Views [facility] Imaging Services [address] [place], [place] [address] Elbow min 3 Views MR#: [id number] Acct: [id number] Name: DIOMEDES CALVO PIERRE Rep #: [id number] : 1960 F 64 From: Stanford Chopra PCP: Dr. Marty White MD Status: REG ER Study: Elbow min 3 Views Date of Exam: 03/01/25 Exam# [id number] Ordering Dr: Richar Carrillo DO PROCEDURE: ELBOW MIN 3 VIEWS 03/01/2025 REASON FOR EXAM: PAIN TECHNIQUE: ELBOW MIN 3 VIEWS COMPARISON: None RAD/Elbow min 3 Views IMPRESSION: No acute fracture or dislocations. Scattered minimal degenerative changes. Minimal joint effusion. No acute soft tissue abnormalities. No radiographic foreign body. Reading Location: [facility] CC: Dr. Richar Carrillo DO; Dr. Marty White MD Embroidery Patternmaker: Signed Normal [facility] Emergency Department Summary on 03-01-2025 Emergency Department Summary [facility] Medical Records Department [address] [place] [address] Emergency Department Summary 03/01/25 MR#: [id number] Acct: [id number] Name: DIOMEDES CALVO PIERRE Rep #: [id number] : 1960 64 From: Richar Carrillo DO [...] ibuprofen as needed for pain. Print Language: Djiboutian Disposition Disposition: Home, Self Care What to do if you have Problems For any increased pain, shortness of breath, bleeding, nausea or vomiting (more content not included)... Normal [facility] Forearm 2 Viewson 03-01-2025 Forearm 2 Views [facility] Imaging Services [address] [place] [address] Forearm 2 Views MR#: [id number] Acct: [id number] Name: DIOMEDES CALVO Rep #: [id number] : 1960 F 64 From: Stanford Chopra PCP: Dr. Marty White MD Status: [facility] ER Study: Forearm 2 Views Date of Exam: 03/01/25 Exam# [id number] Ordering Dr: Richar Carrillo DO PROCEDURE: FOREARM 2 VIEWS 03/01/2025 REASON FOR EXAM: PAIN TECHNIQUE: FOREARM 2 VIEWS COMPARISON: none RAD/Forearm 2 Views IMPRESSION: No acute fracture or dislocations. Scattered minimal degenerative changes. No acute soft tissue abnormalities. No radiographic foreign body. Reading Location: [facility] CC: Dr. Richar Carrillo DO; Dr. Marty White MD Embroidery Patternmaker: Signed Normal [facility] Humerus min 2 Viewson 2024 Humerus min 2 Views [facility] Imaging Services [address] [place], [place] [address] (525) Humerus min 2 Views MR#: [id number] Acct: [id number] Name: DIOMEDES CALVO Rep #: [id number] : 1960 F 64 From: Stanford Chopra PCP: Dr. Marty White MD Status: REG ER Study: Humerus min 2 Views Date of Exam: 03/01/25 Exam# [id number] Ordering Dr: Richar Carrillo DO PROCEDURE: HUMERUS MIN 2 VIEWS 03/01/2025 REASON FOR EXAM: PAIN TECHNIQUE: HUMERUS MIN 2 VIEWS COMPARISON: None RAD/Humerus min 2 Views IMPRESSION: No acute fracture or dislocations. Scattered minimal degenerative changes. No acute soft tissue abnormalities. No radiographic foreign body. Reading Location: [facility] CC: Dr. Richar Carrillo DO; Dr. Marty White MD Embroidery Patternmaker: Signed Normal [facility] Absolute lymphocyte counton 05-04-2022 Lymphocytes Auto (Unsp spec) [#/Vol] 1.26 10*3/uL 0.83-4.51 [facility] Work Phone: Basophil percentageon 2021 Basophils/100 WBC (Bld) 0.9 % 0-1 [facility] Work Phone: Chloride [Moles/Vol] 107 mmol/L 98-107 [facility] Work Phone: Eosinophils/100 WBC (Bld) 1.1 % 0-5 [facility] Work Phone: Glucose [Mass/Vol] 96 mg/dL 74-106 [facility] Work Phone: [phone] Neutrophils (Bld) [#/Vol] 2.7 10*3/uL 2.0-7.7 [facility] Work Phone: Neutrophils/100 WBC (Bld) 59.6 % 47-70 [facility] Work Phone: [phone] Potassium [Moles/Vol] 4.1 mmol/L 3.5-5.1 [facility] Work Phone: Sodium [Moles/Vol] 141 mmol/L 136-145 [facility] Work Phone: WBC (Bld) [#/Vol] 4.6 10*3/uL 4.4-11.0 [facility] Work Phone: Blood erythrocytes count (nu mber/volume)on 05-04-2022 RBC (Bld) [#/Vol] 4.47 10*6/uL 4.2-5.4 [facility] Work Phone: Blood hemoglobin measurement (mass/volume)on 05-04-2022 Hemoglobin (Bld) [Mass/Vol] 13.4 g/dL 12.0-15.0 [facility] Work Phone: Blood lymphocytes/100 leukoc yteson 05-04-2022 Lymphocytes/100 WBC (Bld) 27.7 % 19-41 [facility] Work Phone: Blood monocytes/100 leukocyt eson 05-04-2022 Monocytes/100 WBC (Bld) 10.5 % 0-10 [facility] Work Phone: Blood platelet mean volumeon 05-04-2022 Platelet mean volume (Bld) [Entitic vol] 10.0 fL 6.2-12.0 [facility] Work Phone: Determination of erythrocyte mean corpuscular volume (MCV)on 05-04-2022 MCV (RBC) [Entitic vol] 89.9 fL 81-99 [facility] Work Phone: Hematocrit Auto (Bld) [Volum e fraction]on 05-04-2022 Hematocrit (Bld) [Volume fraction] 40.2 % 37-47 [facility] Work Phone: Laboratory - Chemistry and C hemistry - challengeon 05-04-2022 CO2 [Moles/Vol] 29.0 mmol/L 21.0-32.0 [facility] Work Phone: Urea nitrogen/Creatinine [Mass ratio] 19.6 mg/mg 10-20 [facility] Work Phone: Laboratory - Hematology and Cell countson 05-04-2022 Erythrocyte distribution width (RBC) [Entitic vol] 42.0 fL 35.1-43.9 [facility] Work Phone: Erythrocyte distribution width (RBC) [Ratio] 12.7 % 11.6-14.6 [facility] Work Phone: Immature granulocytes/100 WBC (Bld) 0.200 % 0.0-0.9 [facility] Work Phone: Comment on above: IG% - Immature Granu locytes (promyelocytes, myelocytes and metamyelocytes) > 1% indicates that a LEFT SHIFT is Present. MCH (RBC) [Entitic mass] 30.0 pg 27.0-32.0 [facility] Work Phone: Nucleated RBC/100 WBC (Bld) [Ratio] 0 % 0-5 [facility] Work Phone: MCHC Auto (RBC) [Mass/Vol]on 05-04-2022 MCHC (RBC) [Mass/Vol] 33.3 g/dL 32-36 [facility] Work Phone: No Panel Informationon 05-04 Estimated GFR (MDRD) Amer 106 mL/min >60 [facility] Work Phone: Comment on above: GFR Calc Estimated GFR (MDRD) Non-Af Amer 87 mL/min >60 [facility] Work Phone: Comment on above: Non- GFR Calc Platelets bldon 05-04-2022 Platelets (Bld) [#/Vol] 231 10*3/uL 150-450 [facility] Work [phone] Serum or plasma calcium tony urement (mass/volume)on 05-04-2022 Calcium [Mass/Vol] 9.4 mg/dL 8.5-10.[address] [facility] Work Phone: Serum or plasma creatinine m easurement (mass/volume)on 05-04-2022 Creatinine [Mass/Vol] 0.72 mg/dL 0.55-1.[address] [facility] Work Phone: Comment on above: The validity of the calculated GFR & GFRAA in patients over 70 years has not been determined. Clinical correlation is essential. Serum or plasma urea nitroge n measurement (mass/volume)on 05-04-2022 Urea nitrogen [Mass/Vol] 14 mg/dL 7-18 [facility] Work Phone: Thin prep Papanicolaou smear with manual screeningon 05-04-2022 Thin prep Papanicolaou smear with manual screening 5 5-15 [facility] Work Phone: Cervical or vagninal specime n microscopic examination by cytology stain (reported ason 03-30-2022 Cytology report Cyto stain Doc (Cvx/Vag) Comment . [facility] Work Phone: Comment on above: The Pap [...] DNA Probe+sig amp Ql (Cvx) Negative Negative [facility] Work Phone: Comment on above: This nucleic acid am plification test detects fourteen high-risk HPV types (16,18,31,33,35,39,45,51,52,56,58,59,66,68)without differentiation.Performed at: [facility] - [facility] [id number] [facility] [place], [place] [id number] Director: Ashley Ferro MD, Phone: [phone] at: =G - [facility] [id number] [place], [place] [id number] Director: Ashley Ferro MD, Phone: [phone] Laboratory - Cytologyon 03-03 [employer]ater [employer] Cyto stain Nom (Cvx/Vag) [ID] Comment . [facility] Work Phone: Comment on above: Brian Gallardo ytotechnologist (ASCP) Laboratory - Miscellaneous t estson 03-30-2022 Service comment (Unsp spec) [Interp] Comment . [facility] Work Phone: Comment on above: This liquid based Th inPrep(R) pap test was screened withthe use of an image guided system. Service comment (Unsp spec) [Interp] . . [facility] Work Phone: No Panel Informationon 03-30 Pathology report final diagnosis Narrative Comment . [facility] Work Phone: Comment on above: NEGATIVE FOR INTRAEP ITHELIAL LESION OR MALIGNANCY.CELLULAR CHANGES ASSOCIATED WITH ATROPHY AND INFLAMMATION ARE PRESENT. Vital Signs Date Time Vital Sign Value Performing Clinician Faci lity 03-01-2025 14:41-0400 Body temperature 98 [degF] Dr. Richar Carrillo DO Work Phone: [facility] 03-01-2025 14:41-0400 Diastolic blood pressure 88 mm[Hg] Dr. Richar Carrillo DO Work Phone: [facility] 03-01-2025 14:41-0400 Heart rate 86 /min Dr. Richar Carrillo DO Work Phone: [facility] 03-01-2025 14:41-0400 Respiratory rate 18 /min Dr. Richar Carrillo DO Work Phone: [facility] 03-01-2025 14:41-0400 SaO2% (BldA) [Mass fraction] 100 % Dr. Richar Carrillo DO Work Phone: [facility] 03-01-2025 14:41-0400 Systolic blood pressure 155 mm[Hg] Dr. Richar Carrillo DO Work Phone: [facility] 03-01-2025 12:19-0400 Body height 172.[address] Richar Carrillo DO Work Phone: [facility] 03-01-2025 12:19-0400 Body mass index (BMI) [Ratio] 23.6 kg/m2 Dr. Richar Carrillo DO Work Phone: [facility] 03-01-2025 12:19-0400 Body weight 70.[address] Richar Carrillo DO Work Phone: [facility] 05-06-2022 15:41-0400 Body temperature 96.8 [degF] Dr. Haley Wellington Work Phone: [facility] Work Phone: 05-06-2022 15:41-0400 Diastolic blood pressure 79 mm[Hg] Dr. Haley Wellington Work Phone: [facility] Work Phone: 05-06-2022 15:41-0400 Heart rate 58 /min Dr. Haley Wellington Work Phone: [facility] Work Phone: 05-06-2022 15:41-0400 Respiratory rate 16 /min Dr. Haley Wellington Work Phone: [facility] Work Phone: 05-06-2022 15:41-0400 SaO2% (BldA) [Mass fraction] 100 % Dr. Haley Wellington Work Phone: [facility] Work Phone: 05-06-2022 15:41-0400 Systolic blood pressure 129 mm[Hg] Dr. Haley Wellington Work Phone: [facility] Work Phone: 05-06-2022 10:45-0400 Body height 172.[address] Haley Wellington Work Phone: [facility] Work Phone: 05-06-2022 10:45-0400 Body mass index (BMI) [Ratio] 23.4 kg/m2 Dr. Haley Wellington Work Phone: [facility] Work Phone: 05-06-2022 10:45-0400 Body weight [address] Haley Wellington Work Phone: [facility] Work Phone: 04-27-2022 08:31-0400 Body height 167.[address] Haley Wellington Work Phone: [facility] Work Phone: 04-27-2022 08:31-0400 Body mass index (BMI) [Ratio] 25.2 kg/m2 Dr. Haley Wellington Work Phone: [facility] Work Phone: 04-27-2022 08:31-0400 Body temperature 97.4 [degF] Dr. Haley Wellington Work Phone: [facility] Work Phone: 04-27-2022 08:31-0400 Body weight 70.[address] Haley Wellington Work Phone: [facility] Work Phone: 04-27-2022 08:31-0400 Diastolic blood pressure 81 mm[Hg] Dr. Haley Wellington Work Phone: [facility] Work Phone: 04-27-2022 08:31-0400 Heart rate 80 /min Dr. Haley Wellington Work Phone: [facility] Work Phone: 04-27-2022 08:31-0400 Respiratory rate 16 /min Dr. Haley Wellington Work Phone: [facility] Work Phone: 04-27-2022 08:31-0400 SaO2% (BldA) [Mass fraction] 97 % Dr. Haley Wellington Work Phone: [facility] Work Phone: 04-27-2022 08:31-0400 Systolic blood pressure 153 mm[Hg] Dr. Haley Wellington Work Phone: [facility] Work Phone: Encounters Encounter Date Encounter Type Care Provider Facility Start: 04-30-2025 End: 04-30-[address] Richar Carrillo DO Work Phone: -Outpatient Bone Densitometry Start: 04-30-2025 End: 04-30-[address] [facility] STOCK SUPERVISOR-C -Outpatient Bone Densitometry Work Phone: Start: 04-30-2025 End: 04-30-2025 ambulatory Marty White Facility:[facility] Start: 04-24-2025 End: 04-24-[address] Richar Carrillo DO Work Phone: -Nuclear Medicine [facility] Start: 04-24-2025 End: 04-24-[address] Marty White MD -Nuclear Medicine [facility] Work Phone: Start: 04-24-2025 End: 04-24-2025 ambulatory Marty White Facility:[facility] Start: 03-19-2025 End: 03-19-[address] Richar Carrillo DO Work Phone: -Laboratory [facility] Start: 03-19-2025 End: 03-19-[address] Marty White MD -[facility] Start: 03-18-2025 End: 03-19-[address] Richar Carrillo DO Work Phone: -Laboratory [facility] Start: 03-18-2025 End: 03-18-[address] Marty White MD -Laboratory [facility] Start: 03-18-2025 End: 03-18-2025 ambulatory Marty White Facility:[facility] Start: 03-01-2025 End: 03-01-2025 Emergency department patient visit Dr. Richar Carrillo DO Work Phone: -Emergency Department Work Phone: Start: 06-21-2022 End: 06-21-[address] Haley Wellington Work Phone: [facility] Work Phone: Start: 06-21-2022 End: 06-21-[address] Haley Wellington Work Phone: [facility], [facility] Start: 05-06-2022 End: 05-06-2022 Admission to same day surgery center Dr. Haley Wellington Work Phone: [facility]-Surgical Day Care Start: 05-06-2022 End: 05-06-2022 Non-patient / Non-visit Dr. Haley Wellington Work Phone: [facility] Start: 04-27-2022 End: 04-27-[address] Haley Wellington Work Phone: [facility] Work Phone: Start: 04-27-2022 End: 04-27-[address] Haley Wellington Work Phone: [facility] [place] [facility], Start: 04-27-2022 End: 04-27-[address] Haley Wellington Work Phone: [facility] Start: 04-23-2022 End: 04-23-[address] Haley Wellington Work Phone: [facility] Work Phone: Start: 04-23-2022 End: 04-23-2022 Patient encounter procedure [facility]-Outpatient Breast Imaging Start: 04-20-2022 End: 04-20-2022 ambulatory [facility] Work Phone: Start: 04-20-2022 End: 04-20-2022 Patient encounter procedure [facility]-Outpatient Bone Densitometry Start: 03-30-2022 End: 03-30-2022 ambulatory [facility] Work Phone: Start: 03-30-2022 End: 03-30-2022 Patient encounter procedure [facility]-Laboratory, Specimen Procedures Date Procedure Procedure Detail Performing Clinician Start: 04-30-2025 Screening mammography Keysha Carrillo DO Work Phone: Start: 04-30-2025 Dual energy X-ray absorptiometry Dr. Richar Carrillo DO Work Phone: Start: 04-24-[address] Richar Carrillo DO Work Phone: Start: 03-01-2025 Plain x-ray of elbow Dr [...] Date Care Activity Detail Author Start: 03-01-2025 [facility] Start: 05-06-2022 Catheterization of vein [facility] Work Phone: Start: 05-06-2022 Following clinical p athway protocol [facility] Work Phone: Start: 05-06-2022 Patient discharge [facility] Work Phone: Start: 05-06-2022 Procedure discontinued [facility] Work Phone: Start: 05-06-2022 Taking patient vital signs [facility] Work Phone: Start: 05-06-2022 Vital signs measurements [facility] Work Phone: Start: 05-06-2022 [facility] Work Phone: Start: 05-06-2022 Anes rpr ruptured ac hilles tendon w/wo graft ANESTH ACHILLES TENDON SURG [facility] Work Phone: Start: 05-06-2022 Injection aa&/strd o ther peripheral nerve/branch NJX AA&/STRD OTHER PN/BRANCH [facility] Work Phone: Start: 05-06-2022 Repair primary open/ prq ruptured achilles tendon REPAIR ACHILLES TENDON [facility] Work Phone: Start: 05-06-2022 Medication education [facility] Work Phone: Start: 04-23-2022 Mammography DIAG MAMM W/CA D, UNILAT [facility] Work Phone: Start: 04-23-2022 MG Breast Diagnostic [facility] Work Phone: Start: 04-20-2022 Dual energy X-ray absorptiometry Dexa Bone Density Study [facility] Work Phone: Path report.final Dx Spec [facility] Work Phone: Patient Education Bruises (Contusions) [facility] Work Phone: Patient referral [facility] Work Phone: Immunizations Immunization Date Immunization Notes Care Provider Fa cility 10-31-2020 Covid (Pfizer) [facility] 10-10-2020 Covid (Pfizer) [facility] Payers Date Payer Category Payer Medicare [id number] 2025 Self-pay [id number] 2001 Unknown [id number] Unknown [facility] PACKAGE PLAN [id number] Unknown [id number] [id number] Unknown [id number] Unknown [id number] [id number] [id number] Unknown [id number] 2.16.8 [id number] Unknown [id number] 2.16.8 [id number] Social History Date Type Detail Facility Tobacco smoking stat NHIS Unknown if ever smoked [facility] Work Phone: Start: 1960 Sex Assigned At Female [facility] Start: 04-27-2022 End: 05-05-2022 Tobacco smoking status NHIS Unknown if ever smoked [facility] Work Phone: Start: 03-01-2025 [facility] Sex Female [facility] Medical Equipment Procedure Code Equipment Code Equipment Origin al Text Equipment Identifier Dates Repair, tendon, Achilles PARS SUTURE IMPLANT KIT FDA Start: 05-06-2022 Repair, tendon, Achilles ([id number]) Tendon/ligament bone anchor, bioabsorbable [id number] FDA Start: 05-06-2022 Repair, tendon, Achilles PARS [...] Assessment Result Facility 05-06-2022 Cognitive function Voice/Name [facility] Work Phone: Clinical Notes 03-30-2022 to 04-25-2025 Note Date & Type Note Facility 04-25-2025 Nuclear medicine Diagnostic study note [facility] Imaging Services [address] [place] [address] [id number] Thyroid Uptake Single or Mult MR#: [id number] Acct: [id number] Name: DIOMEDES CALVO PIERRE Rep #: [id number] : 1960 F 65 From: Andrew Alexis MD PCP: Dr. Marty White MD Status: REG CLI Study:Thyroid Uptake Single or Mult Date of Exam: 04/24/25 Exam# [id number] Ordering Dr: Brian White MD PROCEDURE: THYROID UPTAKE SINGLE OR MULT REASON FOR EXAM: E04.9 - NONTOXIC GOITER, UNSPECIFIED TECHNIQUE: Procedure Code: [id number] Modality: NM Procedure: THYROID UPTAKE SINGLE OR MULT Imaging performed following intravenous technetium-99m sestamibi administration.Anterior imaging of the neck through 23.44 hours. RADIOPHARMACEUTICAL: Oral administration of 337 uCi iodine 123 sodium iodide. COMPARISON: Thyroid ultrasound 03/28/2024. FINDINGS: At the medial left thyroid or isthmus, a small focus of mildly increased uptake is seen. Thyroid gland otherwise appears homogeneous, no defect is noted. Thyroid uptake 3.8 hours of 8.1%, and at 23.44 hours of 25.6%. These values arewithin the normal range. NM/Thyroid Uptake Single or Mult IMPRESSION: 1. Normal thyroid uptake values. 2. Small focus of mildly increased uptake seen at the medial left thyroid or isthmus, but no area of decreased uptake is identified.. Reading Location: [id number] CC: Dr. Marty White MD ~ Embroidery Patternmaker: Signed [facility] 03-01-2025 Discharge summary [facility] 03-01-2025 Discharge summary Note Date/Time March 01, 2025 2:22pm [facility] Medical Records Department [address] [place] [address] Emergency Department Summary 03/01/25 MR#: [id number] Acct: [id number] Name: DIOMEDES CALVO [facility] Rep #:[id number] : 1960 64 From: Richar Abraham ggett [...] Psych: Cooperative, appropriate mood and affect PFSH [facility] Medical History (Updated 03/01/25 @ 14:21 by [...] ibuprofen as needed for pain. Print Language: Djiboutian Disposition Disposition: Home, Self Care What to do if you have Problems For any increased pain, shortness of breath, bleeding, nausea or vomiting, chestpain, or any unexpected problems, contact your Primary Care Provider. Call [facility] ([phone]) or report to the closest Emergency Room. Call 911 if necessary. 03/01/25 1422 <Electronically signed by Richar Carrillo DO> Cosigner Signature (if applicable): CC: Dr. Marty White MD ~ Signed [facility] Work Phone: 1(547) 973-510208-01-2025 Radiology Diagnostic study note [facility] Imaging Services [address] [place] [address] Humerus min 2 Views MR#: [id number] Acct: [id number] Name: DIOMEDES CALVO PIERRE Rep #: [id number] : 1960 F 64 From: Morelia Womack MD PCP: Dr. Marty White MD Status: REG ER Study:Humerus min 2 Views Date of Exam: 03/01/25 Exam# [id number] Ordering Dr: Richar Olson DO PROCEDURE: HUMERUS MIN 2 VIEWS 03/01/2025 REASON FOR EXAM: PAIN TECHNIQUE: HUMERUS MIN 2 VIEWS COMPARISON: None RAD/Humerus min 2 Views IMPRESSION: No acute fracture or dislocations. Scattered minimal degenerative changes. No acute soft tissue abnormalities. No radiographic foreign body. Reading Location: [facility] CC: Dr. Richar Carrillo DO; Dr. Marty White MD ~ Embroidery Patternmaker: Signed [facility]08-01-2025 Radiology Diagnostic study note [facility] Imaging Services [address] [place] [address] Elbow min 3 Views MR#: [id number] Acct: [id number] Name: DIOMEDES CALVO Rep #: [id number] : 1960 F 64 From: Morelia Womack MD PCP: Dr. Marty White MD Status: REG ER Study:Elbow min 3 Views Date of Exam: Exam# [id number] Ordering Dr: Richar Olson DO PROCEDURE: ELBOW MIN 3 VIEWS 03/01/2025 REASON FOR EXAM: PAIN TECHNIQUE: ELBOW MIN 3 VIEWS COMPARISON: None RAD/Elbow min 3 Views IMPRESSION: No acute fracture or dislocations. Scattered minimal degenerative changes. Minimal joint effusion. No acute soft tissue abnormalities. No radiographic foreign body. Reading Location: [facility] CC: Dr. Richar Carrillo DO; Dr. Marty White MD ~ Embroidery Patternmaker: Signed [facility]08-01-2025 Radiology Diagnostic study note [facility] Imaging Services [address] [place], [place] [address] Forearm 2 Views MR#: [id number] Acct: [id number] Name: DIOMEDES CALVO PIERRE Rep #: [id number] : 1960 F 64 From: Morelia Womack MD PCP: Dr. Marty White MD Status: REG ER Study:Forearm 2 Views Date of Exam: 08/25 Exam# [id number] Ordering Dr: Richar Olson DO PROCEDURE: FOREARM 2 VIEWS 03/01/2025 REASON FOR EXAM: PAIN TECHNIQUE: FOREARM 2 VIEWS COMPARISON: none RAD/Forearm 2 Views IMPRESSION: No acute fracture or dislocations. Scattered minimal degenerative changes. No acute soft tissue abnormalities. No radiographic foreign body. Reading Location: [facility] CC: Dr. Richar Carrillo DO; Dr. Marty White MD ~ Embroidery Patternmaker: Signed [facility]08-30-2022 NotePap Smear Specimen AdequacyAugust 2021 2:40pmComment.Satisfactory for evaluation. Endocervical component may not bedistinguished in cases of atrophy.[facility] INTERFACED A#[id number] Hospitals Lake [facility] Medical Center Work Phone: Comment on above:Satisfactory for evaluation. Endocervical component may not bedistinguished in cases of atrophy.03-30-2022 NotePap Smear Specimen AdequacyAugust 2021 2:40pmComment.Satisfactory for evaluation. Endocervical component may not bedistinguished in cases of atrophy. [employer] INTERFACED A#[id number] Hospitals Lake [facility] Medical Center Work Phone: Communn on above:Satisfactory for evaluation. Endocervical component may not bedistinguished in cases of atrophy.03-30-2022 NotePap Smear Specimen AdequacyAugust 2021 2:40pmComment.Satisfactory for evaluation. Endocervical component may not bedistinguished in cases of atrophy. [facility] INTERFACED A#[id number] Hospitals [facility] Center Work Phone: Comment on above:Satisfactory for evaluation. Endocervical component may not bedistinguished in cases of atrophy.03-30-2022 NotePap Smear Specimen AdequacyAugust 2021 1:40pmComment.Satisfactory for evaluation. Endocervical component may not bedistinguished in cases of atrophy. [employer] INTERFACED A#[id number] Hospitals Lake [facility] Medical Center Work Phone: Comment on above:Satisfactory for evaluation. Endocervical component may not bedistinguished in cases of atrophy.Evaluation noteNo assessment information availableWMercy Health [facility] Work Phone: Evaluation note* Diagnosis Onset Date Resolution Status Breast mass, right acute [facility] Work Phone: Hospital Discharge instructionsAdditional Instructions Follow-up with primary care physician. Tylenol and ibuprofen as needed for pain. [facility] Work Phone: Reason for referral (narrative)No reason for referral information availableWMercy Health [facility] Work Phone: Chief Complaint [...] arm injury March 01, 2025 12: 18pm Chief Complaint Admit Date fall, arm injury March 01, 2025 12: 18pm GOITER April 24, 2025 7:20am SCREENING April 30, 2025 4:07pm Family History No Family History Records Found Relationship Condition Age at Onset Recorded Date/T jade mother Leukemia Unknown High blood cholesterol Unknown father Diabetes mellitus Unknown Disorder of thyroid Unknown Advance Directives No Advanced Directives Records Found Advance Directive Response Recorded Date/ Time Name of Medical Power of Electrical Products Sales Engineer SPOUSE May 05, 2022 9:57am Living Will Yes May 05 9:57am Power of Electrical Products Sales Engineer Yes May 05 022 9:57am Advance Directive Response Recorded Date/ Time Do you have a Healthcare Power of Electrical Products Sales Engineer? No March 01, 2025 1:15pm Summary Purpose [...] Status: Active Member Role/Relationship Status Dates Dr. aMrty White MD Primary Care Provider Acti ve [...] March 19, 2025 End: March 19, 2025 Team Status: Active Member Role/Relationship Status Dates Dr. Marty White MD Primary care physician Act emmanuel Team Status: Inactive Member Role/Relationship Status Dates Dr. Richar Carrillo DO Attending physician Active Start: March 01 End: March 01, 2025 Dr. Richar Carrillo DO Emergency Department Physician Active Start: March 01, 2025 End: March 01, 2025 Dr. Marty White MD Primary care physician Act emmanuel Start: March 01, 2025 End: March 01, 2025 Team Status: Inactive Member Role/Relationship Status Dates Dr. Marty White MD Primary care physician Act emmanuel Start: March 18, 2025 End: March 18, 2025 Dr. Marty White MD Attending physician Active Start: March 18, 2025 End: March 18, 2025 Team Status: Inactive Member Role/Relationship Status Dates Dr. Marty White MD Primary care physician Act emmanuel Start: March 19, 2025 End: March 19, 2025 Dr. Marty White MD Attending physician Active Start: March 19, 2025 End: March 19, 2025 Dr. Marty White MD Referring Provider Active Start: March 19, 2025 End: March 19, 2025 Team Status: Inactive Member Role/Relationship Status Dates Dr. Marty White MD Primary care physician Act emmanuel Start: April 24, 2025 End: April 24, 2025 Dr. Marty White MD Attending physician Active Start: April 24, 2025 End: April 24, 2025 Dr. Marty White MD Referring Provider Active Start: April 24, 2025 End: April 24, 2025 Team Status: Active Member Role/Relationship Status Dates Dr. Marty White MD Primary care physician Act emmanuel Start: April 30, 2025 Diaz Prakashorrow STOCK SUPERVISOR, STOCK SUPERVISOR-C Attending physician Active Start: April 30, 2025 Diaz Prakashorrow STOCK SUPERVISOR, STOCK SUPERVISOR-C Referring Provider Active Start: April 30, 2025 Team Status: Inactive Member Role/Relationship Status Dates Dr. Marty White MD Primary care physician Act emmanuel Start: April 30, 2025 End: April 30, 2025 Diaz Prakashorrow STOCK SUPERVISOR, STOCK SUPERVISOR-C Attending physician Active Start: April 30, 2025 End: April 30, 2025 Diaz Olindaorrow STOCK SUPERVISOR, STOCK SUPERVISOR-C Referring Provider Active Start: April 30, 2025 End: April 30, 2025 INFORMATION SOURCE (unrecogn ized section and content) DATE CREATED AUTHOR 05/08/2025 [facility] FOR RECORDS PERTAINING TO PATIENTS WHO ARE [...] BE BASED ON THE PRIMARY CLINICAL RECORDS. [facility] [employer] [facility]. provides no warranty or guarantee of the accuracy or completeness of information in this document.
== END | disposition home or self-care (01) ==
PROVIDERS: PCP Family Medicine; Referring Provider Family Medicine; Visit Provider Family Medicine
DX: E05.90 Thyrotoxicosis, unspecified without thyrotoxic crisis or storm (principal)
CPT/HCPCS: 76536